=== PATIENT | male | born 1950 | race Caucasian/White ===

== ENCOUNTER 2019-09-02 11:19 | Emergency (ER) | payer MEDICARE, OTHER, SELFPAY ==
[2019-09-02 11:48] VITALS: BP 170/93; PULSE 77; RESP 16; TEMP 36.7; O2SAT 95; BMI 39.9
--- NOTE | 2019-09-02 12:01 | ECG_ITS ---
Measurements Intervals [place] Rate: 82 P: 27 AK: 164 QRS: 39 QRSD: 101 T: 36 QT: 364 QTc: 425 SINUS RHYTHM POSSIBLE RIGHT VENTRICULAR CONDUCTION DELAY [RSR (QR) IN V1/V2] No previous ECG available for comparison Electronically Signed On 09-02-2019 13:03:26 LOGISTICS SUPPLY OFFICER by Blanca Lewis M.D. [id number] f
--- NOTE | 2019-09-02 12:01 | CTR_ITS ---
PROCEDURE INFORMATION: Exam: CT Cervical Spine Without Contrast Exam date and time: 09/02/2019 12:28 PM Age: 69 years old Clinical indication: Patient HX: Left hand and arm numbness; Additional info: Numbness in fingers TECHNIQUE: Imaging protocol: Computed tomography images of the cervical spine without contrast. Total DLP: 985 mGy-cm Radiation optimization: All CT scans at this facility use at least one of these dose optimization techniques: automated exposure control; mA and/or kV adjustment per patient size (includes targeted exams where dose is matched to clinical indication); or iterative reconstruction. COMPARISON: No relevant prior studies available. FINDINGS: Vertebrae: No acute fracture. Normal alignment. Moderate diffuse degenerative changes are noted with disc space narrowing and endplate osteophytes with sclerosis greatest at C4-C5, C5-C6 and C6-C7. Discs/Spinal canal/Neural foramina: No disc herniations. Posterior endplate osteophytes and moderate facet hypertrophy is noted throughout the cervical spine. This results in multiple levels mild foraminal narrowing especially on the right at C5-C6 and C6-C7 and on the left at C4-C5. Soft tissues: Unremarkable. Lungs: Lung apices are normal. CT/CT cervical spin wo con* [id number] IMPRESSION: No acute findings. Degenerative changes are noted as above. Radiation Dose CTDIVOL = (mGy): DLP = 985 (mGy-cm)
--- NOTE | 2019-09-02 12:03 | ED_ITS ---
HPI - Back Pain/Injury General: Chief Complaint: Back Pain/Injury Stated Complaint: BAD BACK, NUMB FINGERS Time Seen by Provider: 09/02/19 11:54 History of Present Illness: HPI Narrative: Patient with a history of abdominal bloating and numbness in his fingers over the last week and a half. Patient has been treated for cellulitis in his left little finger. Still has some swelling at finger from a splinter that was present. Then saw his family provider Dr. Griffin who diagnosed him with kyphosis for the cause of his numbness in his fingers and his abdominal bloating. Patient states he is not improving is supposed to follow-up with Dr. Griffin on Tuesday. Said the numbness in his fingers is worsening Does have 2 cardiac stents. MD elicited complaint: other (History of bulging disc in neck.) Pertinent past history: prior back pain Onset (ago): week(s) Timing: constant and progressively worsening Severity: moderate Similar Symptoms Previously: No Quality: tingling Radiation: other (Both hands) Exacerbating factors: none Associated symptoms: Reports tingling/numbness/burning; Deny abdominal pain, chills, fever(s), nausea or vomiting Treatments prior to arrival: other (Abdominal bloating) Review of Systems Narrative: Pain in upper back Const: Denies: fever, chills or body aches Eyes: Denies: change in vision or blurry vision ENMT: Denies: throat pain or nasal congestion Card: Denies: chest pain or shortness of breath on exertion Resp: Denies: shortness of breath, productive cough or non-productive cough GI: Reports: bloating; Denies: abdominal pain, nausea or vomiting : Denies: difficulty urinating Musc: Denies: extremity pain Skin/Breast: Denies: rash Neuro: Reports: other (Numbness and tingling in fingers); Denies: headache Psych: Denies: anxiety or depression Eladio/Lymph: Denies: easy bruising PFSH ED PFSH: Social History Smoking and tobacco status: former smoker Alcohol intake: current Physical Exam Const: COMMON NORMALS: no apparent distress, average body habitus and oriented x3 HENMT: COMMON NORMALS: normocephalic HEAD & SCALP: normal to inspection and normocephalic FACE & SINUS: normal facial exam Eye: COMMON NORMALS: conjunctivae normal GENERAL EYE: normal appearance of both eyes CONJUNCTIVA: Yes conjunctivae normal Neck/C-Spine: COMMON NORMALS: no JVD Chest: COMMONS NORMALS: inspection of chest normal Resp: COMMON NORMALS: normal respiratory effort and clear to auscultation bilaterally AUSCULTATION: clear to auscultation bilaterally Cardio: COMMON NORMALS: no JVD, regular rate and regular rhythm RATE: regular rate RHYTHM: regular rhythm GI: COMMON NORMALS: normal to inspection, nondistended, normoactive bowel sounds Extremity: COMMON NORMALS: normal to inspection and full ROM Neuro: COMMON NORMALS: oriented x3 Course Vital Signs: Vital signs: Vital Signs Temperature 98.1 F 09/02/19 11:48 Pulse Rate 85 09/02/19 12:08 Respiratory Rate 18 09/02/19 12:08 Blood Pressure 141/86 09/02/19 12:08 Pulse Oximetry 95 09/02/19 12:08 MDM - Back Pain/Injury MDM Narrative: Medical decision making narrative: Discussed case and results with Dr. Garcia patient follow-up with Dr. Griffin on Tuesday and go over results possibly needs MRI for cervical radiculopathy patient tries magnesium citrate to help with his gas and and stool he has in his colon. Lab Data: Labs: Lab Results 09/02/19 09/02/19 09/02/19 Range/Units 12:23 12:23 12:23 WBC 7.5 (4.0-10.0) 10^3/ uL RBC 4.50 (4.1-5.3) 10^6/u L Hgb 13.3 (11.7-16.6) g/dL Hct 41.0 L (42.0-52.0) % MCV 91.1 (80-94) fL MCH 29.6 (28.0-34.0) pg MCHC 32.4 (30.0-36.0) g/dL RDW 13.6 (12.1-15.1) % Plt Count 248 (130-400) 10^3/c mm MPV 11.6 H (7.4-10.4) fL Neut % (Auto) 60.3 % Lymph % (Auto) 20.6 % [place] % (Auto) 12.9 % Eos % (Auto) 4.5 % Baso % (Auto) 1.3 % Neut # (Auto) 4.5 (1.8-7.7) 10^3/u L Lymph # (Auto) 1.6 (0.8-4.8) 10^3/u L [place] # (Auto) 1.0 H (0.2-0.9) 10^3/u L Eos # (Auto) 0.3 (0.0-0.8) 10^3/u L Baso # (Auto) 0.1 (0.0-0.1) 10^3/u L Nucleated RBC % (a uto) 0 % Nucleated RBCs # 0.0 /100WBC Sodium 140 (136-145) mmol/L Potassium 4.2 (3.5-5.1) mmol/L Chloride 104 (98-107) mmol/L Carbon Dioxide 25 (22-29) mmol/L Anion Gap 15.2 (5-19) BUN 20 (8-23) mg/dL Creatinine 1.0 (0.7-1.2) mg/dL GFR Calculation 74.5 L (90-130) mL/min Glucose 110 (65-115) mg/dL Calcium 9.1 (8.5-10.5) mg/dL Total Bilirubin 0.3 (0.15-1.2) mg/dL AST 17 (0-40) U/L ALT 15 (0-41) U/L Alkaline Phosphata se 57 (40-130) IU/L Troponin T Baselin e 13 (0-15) ng/mL Total Protein 6.4 L (6.6-8.7) g/dL Albumin 3.8 (3.5-5.2) g/dL Globulin 2.6 (1.3-4.6) g/dL EKG Data^: EKG 1: EKG interpretation date: 09/02/19 EKG interpretation time: 12:18 Interpretation: SR. *@bpm, pr-164, qrs 101ms Discharge Plan Discharge Prescriptions: No Action aspirin [Adult Low Dose Aspirin] 81 mg tablet,delayed release (DR/EC) 81 mg PO QDAY RF: 0 hydrochlorothiazide 12.5 mg tablet 12.5 mg PO QAM RF: 0 lisinopril 10 mg tablet 10 mg PO BID RF: 0 clonidine HCl 0.1 mg tablet 0.05 mg PO BID PRN (Reason: hypertensive emergency) RF: 0 glucosamine-chondroitin [Osteo Bi-Flex] 250-200 mg tablet 1 tab PO TID RF: 0 metoprolol succinate 50 mg tablet extended release 24 hr 50 mg PO QDAY Qty: 30 RF: 11 Coding Level of Care Code ED [employer] Operator for Suzetteg Fwd Exam Comprehensive
[2019-09-02 12:08] VITALS: BP 141/86; PULSE 85; RESP 18; O2SAT 95
--- NOTE | 2019-09-02 12:10 | PC.NURSE ---
Patient reports that he started working at a [employer] recently after being retired. Patient states about 3 weeks of working that his back was hurting. Patient reports that his left arm started to get numb. Patient reports his left arm and hand has been numb for about 1 week. Patient states that he is having a hard time grabbing stuff. Patient reports that he woke up this morning with right sided arm numbness.
[2019-09-02] MEDS: sodium chloride 0.9% 1,000 ML 125 ML IV (12:19)
--- NOTE | 2019-09-02 12:20 | XR_ITS ---
WS: [id number] XR acute abdomen series [id number] REASON FOR EXAM: bloating and back pain FINDINGS: The upright chest shows normal appearance of the heart lung hugo are clear there is no fr ee air. AP upright abdomen shows no free air in the abdomen. There are scattered small bowel loops irregular low density and there is fecal stasis the left colon. No definite unusual calcifications in the abdomen. There is postop changes across the upper abdomen. There is fecal stasis in the left: The heart is normal. The lungs are clear No free air. XR/XR acute abdomen series [id number] IMPRESSION: Adynamic ileus.
[2019-09-02 12:31] LABS: Basophils # 0.1 10^3/uL (0.0-0.1); Basophils % 1.3 %; Eosinophils # 0.3 10^3/uL (0.0-0.8); Eosinophils % 4.5 %; Hemoglobin 13.3 g/dL (11.7-16.6); Lymphocytes # 1.6 10^3/uL (0.8-4.8); Lymphocytes % 20.6 %; Mean Corpuscular HGB Conc 32.4 g/dL (30.0-36.0); Mean Corpuscular Hemoglobin 29.6 pg (28.0-34.0); Mean Corpuscular Volume 91.1 fL (80-94); Mean Platelet Volume 11.6 fL (7.4-10.4); Monocytes % 12.9 %; Neutrophils # 4.5 10^3/uL (1.8-7.7); Neutrophils % 60.3 %; Nucleated Red Blood Cells % 0 %; Platelet Count 248 10^3/cmm (130-400); Red Cell Distribution Width 13.6 % (12.1-15.1); White Blood Count 7.5 10^3/uL (4.0-10.0)
[2019-09-02 12:53] LABS: Alanine Aminotransferase 15 U/L (0-41); Albumin Level 3.8 g/dL (3.5-5.2); Alkaline Phosphatase 57 IU/L (40-130); Anion Gap 15.2 (5-19); Aspartate Amino Transferase 17 U/L (0-40); Blood Urea Nitrogen 20 mg/dL (8-23); Calcium 9.1 mg/dL (8.5-10.5); Carbon Dioxide 25 mmol/L (22-29); Chloride 104 mmol/L (98-107); Globulin 2.6 g/dL (1.3-4.6); Glomerular Filtration Rate 74.5 mL/min (90-130); Glucose 110 mg/dL (65-115); Potassium 4.2 mmol/L (3.5-5.1); Sodium 140 mmol/L (136-145); Total Bilirubin 0.3 mg/dL (0.15-1.2); Total Protein 6.4 g/dL (6.6-8.7)
[2019-09-02 12:56] LABS: Troponin(5th) Baseline 13 ng/mL (0-15)
[2019-09-02 13:37] VITALS: BP 162/69; PULSE 74; RESP 17; O2SAT 95
== END 2019-09-02 13:38 | disposition home or self-care (01) ==
PROVIDERS: Emergency Provider Nurse Practitioner Family; Family Provider Family Medicine; PCP Family Medicine
DX: M54.6 Pain in thoracic spine (principal); R20.0 Anesthesia of skin; R14.0 Abdominal distension (gaseous); Z87.891 Personal history of nicotine dependence
CPT/HCPCS: 36415; 72125; 74022; 80053; 84484; 85025; 87040; 93005; 96360; 99282; 99283; J7030

== ENCOUNTER 2019-09-24 08:15 | Outpatient (CLI) | payer MEDICARE, OTHER, SELFPAY ==
--- NOTE | 2019-09-27 16:00 | MR_ITS ---
WS: [id number] MRI CERVICAL SPINE NONCONTRAST TECHNIQUE: Sagittal T1, T2 and STIR imaging. Axial T2, gradient, and fiesta imaging. CLINICAL INFORMATION: unsteady COMPARISON: None. FINDINGS: Straightening of the normal cervical lordosis. Mild spondylitic changes. Mild disc bulging at C6-C7 a nd C7-T1. C2-C3: Normal. C3-C4: Mild disc osteophyte complex with endplate ridging. Moderate right and mild left foraminal hilary rowing. Mild facet arthropathy. Mild central canal stenosis. C4-C5: Mild disc osteophyte complex with endplate ridging. Mild central canal stenosis. Moderate left and mild right bony foraminal narrowing. Mild facet arthropathy. C5-C6: Disc osteophyte complex with endplate ridging. Mild to moderate central canal stenosis and sli ght indentation on the right ventral cervical cord. Moderate to severe right and mild to moderate lef t bony foraminal narrowing. Mild facet arthropathy. C6-C7: Central disc protrusion with slight contact of the cervical cord. Mild to moderate central can al stenosis. Severe left and moderate right bony foraminal narrowing. Mild facet arthropathy. C7-T1: Mild disc osteophyte complex with endplate ridging. Mild/moderate bony foraminal narrowing. Sp inal canal is patent Visualized brain stem structures: Normal. Prevertebral soft tissues: Normal.
--- NOTE | 2019-09-27 16:45 | MR_ITS ---
WS: [id number] MRI HEAD WITHOUT CONTRAST TECHNIQUE: Sagittal T1, T2 axial, T2 axial FLAIR, axial and coronal T1 images, axial susceptibility w eighted imaging, axial diffusion weighted images, and coronal T2 images were obtained. CLINICAL INFORMATION: unsteady gait COMPARISON: None. FINDINGS: No evidence of restricted diffusion to suggest acute ischemia. Ventricular system and basal cisterns are patent. No suspicious intracranial signal abnormalities. Moderate parenchymal volume loss. Normal posterior fossa. Normal vascular flow voids at the skull base. No evidence of mass or mass effect. P aranasal sinuses are well aerated. Mild mucosal thickening in the ethmoid air cells. Partial opacification of the mastoid tips. No hemosiderin on the susceptibly weighted images. Tempora l lobes and hippocampal formations are normal in appearance. Mild symmetric atrophy. Normal optic chi asm and pituitary infundibulum.
== END 2019-09-24 08:16 | disposition home or self-care (01) ==
LOC: RADSHAW 09-25 08:50
PROVIDERS: Family Provider Family Medicine; PCP Family Medicine; Referring Provider Family Medicine; Visit Provider Specialist
DX: R20.0 Anesthesia of skin; R20.2 Paresthesia of skin; R29.90 Unspecified symptoms and signs involving the nervous system; R27.0 Ataxia, unspecified; Z87.891 Personal history of nicotine dependence
CPT/HCPCS: 73140; 99204; 99214

== ENCOUNTER 2019-09-27 12:50 | Outpatient (CLI) | payer MEDICARE, OTHER, SELFPAY ==
--- NOTE | 2019-09-27 | MR_ITS ---
NOTE: Report was unsigned for reason: Order was edited. Original Signature date and time was: 09/09/19; 1408 MRI HEAD WITHOUT CONTRAST TECHNIQUE: Sagittal T1, T2 axial, T2 axial FLAIR, axial and coronal T1 images, axial susceptibility weighted imaging, axial diffusion weighted images, and coronal T2 images were obtained. CLINICAL INFORMATION: unsteady gait COMPARISON: None. FINDINGS: No evidence of restricted diffusion to suggest acute ischemia. Ventricular system and basal cisterns are patent. No suspicious intracranial signal abnormalities. Moderate parenchymal volume loss. Normal posterior fossa. Normal vascular flow voids at the skull base. No evidence of mass or mass effect. Paranasal sinuses are well aerated. Mild mucosal thickening in the ethmoid air cells. Partial opacification of the mastoid tips. No hemosiderin on the susceptibly weighted images. Temporal lobes and hippocampal formations are normal in appearance. Mild symmetric atrophy. Normal optic chiasm and pituitary infundibulum. Dictated By: Joce Marquez MD Signed By: Signed Date/Time: DD/ 1404 MTDD
--- NOTE | 2019-09-27 | MR_ITS ---
MRI CERVICAL SPINE NONCONTRAST TECHNIQUE: Sagittal T1, T2 and STIR imaging. Axial T2, gradient, and fiesta imaging. CLINICAL INFORMATION: unsteady COMPARISON: None. FINDINGS: Straightening of the normal cervical lordosis. Mild spondylitic changes. Mild disc bulging at C6-C7 and C7-T1. C2-C3: Normal. C3-C4: Mild disc osteophyte complex with endplate ridging. Moderate right and mild left foraminal narrowing. Mild facet arthropathy. Mild central canal stenosis. C4-C5: Mild disc osteophyte complex with endplate ridging. Mild central canal stenosis. Moderate left and mild right bony foraminal narrowing. Mild facet arthropathy. C5-C6: Disc osteophyte complex with endplate ridging. Mild to moderate central canal stenosis and slight indentation on the right ventral cervical cord. Moderate to severe right and mild to moderate left bony foraminal narrowing. Mild facet arthropathy. C6-C7: Central disc protrusion with slight contact of the cervical cord. Mild to moderate central canal stenosis. Severe left and moderate right bony foraminal narrowing. Mild facet arthropathy. C7-T1: Mild disc osteophyte complex with endplate ridging. Mild/moderate bony foraminal narrowing. Spinal canal is patent Visualized brain stem structures: Normal. Prevertebral soft tissues: Normal. Dictated By: Joce Marquez MD Signed By: Signed Date/Time: DD/ 1429 MTDD
--- NOTE | 2019-09-27 08:13 | MR_ITS ---
WS: [id number] MRI CERVICAL SPINE NONCONTRAST TECHNIQUE: Sagittal T1, T2 and STIR imaging. Axial T2, gradient, and fiesta imaging. CLINICAL INFORMATION: unsteady COMPARISON: None. FINDINGS: Straightening of the normal cervical lordosis. Mild spondylitic changes. Mild disc bulging at C6-C7 a nd C7-T1. C2-C3: Normal. C3-C4: Mild disc osteophyte complex with endplate ridging. Moderate right and mild left foraminal hilary rowing. Mild facet arthropathy. Mild central canal stenosis. C4-C5: Mild disc osteophyte complex with endplate ridging. Mild central canal stenosis. Moderate left and mild right bony foraminal narrowing. Mild facet arthropathy. C5-C6: Disc osteophyte complex with endplate ridging. Mild to moderate central canal stenosis and sli ght indentation on the right ventral cervical cord. Moderate to severe right and mild to moderate lef t bony foraminal narrowing. Mild facet arthropathy. C6-C7: Central disc protrusion with slight contact of the cervical cord. Mild to moderate central can al stenosis. Severe left and moderate right bony foraminal narrowing. Mild facet arthropathy. C7-T1: Mild disc osteophyte complex with endplate ridging. Mild/moderate bony foraminal narrowing. Sp inal canal is patent Visualized brain stem structures: Normal. Prevertebral soft tissues: Normal. MR/MR cervical spin wo con* [id number] IMPRESSION: 1. Straightening of the normal cervical lordosis. Mild spondylitic changes. 2. Mild central canal stenosis C4-C5 C5-C6 and C6-C7. 3. Right pericentral disc osteophyte protrusion C5-C6 and central disc protrus ion C6-C7 with slight indentation on cervical cord and mild to moderate central canal stenosis. 4. Multilevel bony foraminal narrowing worse at left C4-C5, right C5-C6, and l eft C6-C7. 5. Mild to moderate facet arthropathy worse at C4-C5, C5-C6 and C6-C7.
--- NOTE | 2019-09-27 08:13 | MR_ITS ---
WS: [id number] MRI HEAD WITHOUT CONTRAST TECHNIQUE: Sagittal T1, T2 axial, T2 axial FLAIR, axial and coronal T1 images, axial susceptibility w eighted imaging, axial diffusion weighted images, and coronal T2 images were obtained. CLINICAL INFORMATION: unsteady gait COMPARISON: None. FINDINGS: No evidence of restricted diffusion to suggest acute ischemia. Ventricular system and basal cisterns are patent. No suspicious intracranial signal abnormalities. Moderate parenchymal volume loss. Normal posterior fossa. Normal vascular flow voids at the skull base. No evidence of mass or mass effect. P aranasal sinuses are well aerated. Mild mucosal thickening in the ethmoid air cells. Partial opacification of the mastoid tips. No hemosiderin on the susceptibly weighted images. Tempora l lobes and hippocampal formations are normal in appearance. Mild symmetric atrophy. Normal optic chi asm and pituitary infundibulum. MR/MR head wo con* [id number] IMPRESSION: 1. No evidence of restricted diffusion to suggest acute ischemia. 2. Mild small vessel changes. Moderate parenchymal volume loss. 3. No extra-axial fluid collections. No evidence of mass or mass effect. 4. Mild mucosal thickening in the right greater than left mastoid air cells. 5. No hemosiderin on susceptibly weighted images.
== END 2019-09-27 12:51 | disposition home or self-care (01) ==
LOC: RADSHAW 12:51
PROVIDERS: Family Provider Family Medicine; PCP Family Medicine; Visit Provider Specialist
DX: M47.892 Other spondylosis, cervical region (principal); M48.02 Spinal stenosis, cervical region; M50.222 Other cervical disc displacement at C5-C6 level; R26.81 Unsteadiness on feet
CPT/HCPCS: 70551; 72141

== ENCOUNTER → 2019-10-01 08:09 | Outpatient (BNVA) | payer MEDICARE, OTHER, SELFPAY | PROVIDERS: Family Provider Family Medicine; PCP Family Medicine; Visit Provider Specialist | DX: G56.22 Lesion of ulnar nerve, left upper limb (principal); Z87.891 Personal history of nicotine dependence | CPT/HCPCS: 95910 ==

== ENCOUNTER → 2019-10-04 13:50 | Outpatient (BNVA) | payer MEDICARE, OTHER, SELFPAY | PROVIDERS: Family Provider Family Medicine; PCP Family Medicine; Referring Provider Family Medicine; Visit Provider Specialist | DX: R26.81 Unsteadiness on feet (principal); R20.0 Anesthesia of skin; R20.2 Paresthesia of skin; R29.90 Unspecified symptoms and signs involving the nervous system; R26.9 Unspecified abnormalities of gait and mobility | CPT/HCPCS: 82607; 83036; 83921; 84443 ==

== ENCOUNTER → 2020-05-11 12:12 | Outpatient (BNVA) | payer MEDICARE, OTHER, SELFPAY | PROVIDERS: Family Provider Family Medicine; PCP Family Medicine | DX: Z20.828 Contact with and (suspected) exposure to other viral communicable diseases (principal); J11.1 Influenza due to unidentified influenza virus with other respiratory manifestations | CPT/HCPCS: 87400; 87635 ==

== ENCOUNTER 2020-09-26 04:50 | Emergency (ER) | payer MEDICARE, OTHER, SELFPAY ==
[2020-09-26] VITALS (8 sets, daily range): BP systolic 97–158; BP diastolic 50–127; PULSE 78–130; RESP 18–26; TEMP 36.6–37.3; O2SAT 94–99; BMI 42.8
--- NOTE | 2020-09-26 04:59 | XR_ITS ---
WS: [id number] XR chest 1V portable [id number] REASON FOR EXAM: fever FINDINGS: Moderate tortuosity thoracic aorta without aneurysmal dilatation. Normal heart size. Minor calcified granulomatous changes in both hemithoraces. No active pulmonary parenchymal or pleural disease is noted. Mild changes of degenerative spondylosis in the mid and lower thoracic spine. XR/XR chest 1V portable [id number] IMPRESSION: No acute pulmonary abnormality.
--- NOTE | 2020-09-26 05:02 | ECG_ITS ---
[facility] Test Date: 2020-09-26 Pat Name: Roly Adamson Department: Room: Gender: Male [employer]: : [id number] Requested By: Guillermina Garcia Order Number: [id number] Julia MD: Buck Ford M.D. Measurements Intervals [place] Rate: 113 P: 12 PA: 170 QRS: -1 QRSD: 96 T: 15 QT: 322 QTc: 443 Interpretive Statements SINUS TACHYCARDIA MODERATE VOLTAGE CRITERIA FOR LVH, CONSIDER NORMAL VARIANT [MEETS CRITERIA IN ONE OF: R(aVL), S(V1), R(V5), R(V5/V6)+S(V1)] ABNORMAL RHYTHM ECG Compared to ECG 09/02/2019 12:17:47 Sinus rhythm no longer present Electronically Signed On 09-26-2020 23:11:32 CDT by Buck Ford M.D. [id number]
--- NOTE | 2020-09-26 05:03 | W.ED.FEVER ---
Documented by User: Guillermina Garcia MD 09/26/20 05:44 HPI - Fever General: Chief Complaint: Fever Stated Complaint: painful urination, constipation Time Seen by Provider: 09/26/20 04:59 Source: patient Mode of arrival: ambulatory Limitations: no limitations History of Present Illness: HPI Narrative: 70-year-old male states that throughout the night he has had painful urination and increased frequency. He states he also started having chills and checked his temperature at home and was 102. He took a Motrin his temperature here is 99. States he had some slight constipation. He states he has had urinary tract infections in the past similar to this. He denies any pain in his testicles or flank pain. He denies any abdominal pain. Denies any vomiting or diarrhea. Denies any worsening improving factors. He denies any cough. Associated symptoms: Reports chills and dysuria; Deny chest pain or headache(s) Review of Systems Const: Reports: fever(s), chills and body aches Eyes: Denies: blurry vision or eye discomfort ENMT: Denies: throat pain or dental pain Card: Denies: chest pain Resp: Denies: dyspnea GI: Reports: constipation : Reports: dysuria and urinary frequency Musc: Denies: neck pain or back pain Skin/Breast: Denies: rash Neuro: Denies: headache(s) Psych: Denies: depression Eladio/Lymph: Denies: easy bruising All/Imm: Denies: urticaria PFSH ED PFSH: Medical History Cardiovascular disease with arteriosclerosis HTN (hypertension) Presence of drug-eluting stent in left circumflex coronary artery stent X2 in 2016, overlapping stent in December 2017. Surgical History History of hemicolectomy Family History Brother Myocardial infarction CAD (coronary artery disease) Mother Cancer Sister Cancer Grandfather Cancer Denies family history of Diabetes Clotting disorder Dementia Hyperlipidemia Psychiatric illness Chronic kidney disease (CKD) Suicide Anesthesia complication Bleeding disorder Family history of premature coronary artery disease Lung disease Hypertension Stroke Social History Smoking and tobacco status: former smoker Quit status (tobacco): has quit using tobacco Year quit tobacco: 2009 Alcohol intake: current Alcohol intake frequency: 0-2 Drinks per Day History of recent travel: No Physical Exam Const: COMMON NORMALS: no acute distress, patient oriented x3 and healthy appearing HENMT: COMMON NORMALS: normocephalic and atraumatic HEAD & SCALP: normocephalic and atraumatic Eye: COMMON NORMALS: Equal, round and reactive pupils present and EOMs intact bilaterally PUPIL: Yes Equal, round and reactive pupils present Neck/C-Spine: COMMON NORMALS: full ROM and supple Chest: COMMONS NORMALS: normal inspection of the chest and normal palpation of entire chest wall Resp: COMMON NORMALS: normal respiratory effort, No retractions, No use of accessory muscles and clear to auscultation bilaterally AUSCULTATION: clear to auscultation bilaterally Cardio: COMMON NORMALS: regular rhythm and No murmurs present (Cardio) RATE: tachycardic RHYTHM: regular rhythm GI: COMMON NORMALS: Normal to inspection, nondistended, normoactive bowel sounds present, Soft to palpation, non-tender and no masses PALPATION: Yes Soft to palpation Extremity: COMMON NORMALS: normal to inspection and full ROM Neuro: COMMON NORMALS: patient oriented x3, moves all extremities and no focal motor deficits Psych: COMMON NORMALS: mental status grossly normal, Normal thought process present and cooperative THOUGHT PROCESS: Normal thought process present Skin: COMMON NORMALS: no rashes or lesions noted and no wounds GENERAL SKIN EXAM: no rashes or lesions noted Course Vital Signs: Vital signs: Vital Signs Temperature 98.2 F 09/26/20 06:40 Pulse Rate 98 09/26/20 07:03 Respiratory Rate 18 09/26/20 07:03 Blood Pressure 97/50 09/26/20 07:03 Pulse Oximetry 96 09/26/20 07:03 MDM - Fever Lab Data: Labs: Lab Results 09/26/20 09/26/20 09/26/20 Range/Units 05:06 05:27 05:27 WBC 20.4 H (4.0-10.0) 10^3/ uL RBC 4.87 (4.1-5.3) 10^6/u L Hgb 15.1 (11.7-16.6) g/dL Hct 45.3 (42.0-52.0) % MCV 93.0 (80-94) fL MCH 31.0 (28.0-34.0) pg MCHC 33.3 (30.0-36.0) g/dL RDW 13.0 (12.1-15.1) % Plt Count 229 (130-400) 10^3/c mm MPV 11.6 H (7.4-10.4) fL Neut % (Auto) 85.9 % Lymph % (Auto) 3.2 % [place] % (Auto) 8.8 % Eos % (Auto) 0.5 % Baso % (Auto) 0.7 % Neut # (Auto) 17.50 H (1.8-7.7) 10^3/u L Lymph # (Auto) 0.7 L (0.8-4.8) 10^3/u L [place] # (Auto) 1.8 H (0.2-0.9) 10^3/u L Eos # (Auto) 0.1 (0.0-0.8) 10^3/u L Baso # (Auto) 0.1 (0.0-0.1) 10^3/u L Nucleated RBC % (a uto) 0 % Nucleated RBCs # 0.0 /100WBC Sodium 137 (136-145) mmol/L Potassium 4.0 (3.5-5.1) mmol/L Chloride 102 (98-107) mmol/L Carbon Dioxide 23 (22-29) mmol/L Anion Gap 16.0 (5-19) BUN 17 (8-23) mg/dL Creatinine 0.9 (0.7-1.2) mg/dL GFR Calculation 83.9 L (90-130) mL/min Glucose 134 H (65-115) mg/dL Calculated Osmolal ity 288 (285-295) mOsm/k g Lactate (0.5-2.2) mmol/L Calcium 9.2 (8.5-10.5) mg/dL Total Bilirubin 1.0 (0.15-1.2) mg/dL AST 16 (0-40) U/L ALT 14 (0-41) U/L Alkaline Phosphata se 55 (40-130) IU/L Total Protein 7.5 (6.6-8.7) g/dL Albumin 4.2 (3.5-5.2) g/dL Globulin 3.3 (1.3-4.6) g/dL Urine Color Yellow (Yellow) Urine Appearance Cloudy (CLEAR) Urine pH 5 (5-7) Ur Specific Gravit y 1.020 (1.005-1.030) Urine Protein Trace (Negative) Urine Glucose (UA) Norm (Normal) Urine Ketones Negative (Negative) Urine Blood 3+ H (Negative) Urine Nitrate Positive H (Negative) Urine Bilirubin Neg (Negative) Urine Urobilinogen Norm (Negative) mg/dL Ur Leukocyte Amy ase 2+ H (Negative) Urine RBC 10-15 H (0-2) /hpf Urine WBC 25-40 H (0-5) /hpf Ur Squamous Epith Cells None (0-5) /hpf Amorphous Sediment Not Reportable Urine Bacteria 3+ H (NONE) /hpf 09/26/20 Range/Units 05:27 WBC (4.0-10.0) 10^3/ uL RBC (4.1-5.3) 10^6/u L Hgb (11.7-16.6) g/dL Hct (42.0-52.0) % MCV (80-94) fL MCH (28.0-34.0) pg MCHC (30.0-36.0) g/dL RDW (12.1-15.1) % Plt Count (130-400) 10^3/c mm MPV (7.4-10.4) fL Neut % (Auto) % Lymph % (Auto) % [place] % (Auto) % Eos % (Auto) % Baso % (Auto) % Neut # (Auto) (1.8-7.7) 10^3/u L Lymph # (Auto) (0.8-4.8) 10^3/u L [place] # (Auto) (0.2-0.9) 10^3/u L Eos # (Auto) (0.0-0.8) 10^3/u L Baso # (Auto) (0.0-0.1) 10^3/u L Nucleated RBC % (a uto) % Nucleated RBCs # /100WBC Sodium (136-145) mmol/L Potassium (3.5-5.1) mmol/L Chloride (98-107) mmol/L Carbon Dioxide (22-29) mmol/L Anion Gap (5-19) BUN (8-23) mg/dL Creatinine (0.7-1.2) mg/dL GFR Calculation (90-130) mL/min Glucose (65-115) mg/dL Calculated Osmolal ity (285-295) mOsm/k g Lactate 1.7 (0.5-2.2) mmol/L Calcium (8.5-10.5) mg/dL Total Bilirubin (0.15-1.2) mg/dL AST (0-40) U/L ALT (0-41) U/L Alkaline Phosphata se (40-130) IU/L Total Protein (6.6-8.7) g/dL Albumin (3.5-5.2) g/dL Globulin (1.3-4.6) g/dL Urine Color (Yellow) Urine Appearance (CLEAR) Urine pH (5-7) Ur Specific Gravit y (1.005-1.030) Urine Protein (Negative) Urine Glucose (UA) (Normal) Urine Ketones (Negative) Urine Blood (Negative) Urine Nitrate (Negative) Urine Bilirubin (Negative) Urine Urobilinogen (Negative) mg/dL Ur Leukocyte Amy ase (Negative) Urine RBC (0-2) /hpf Urine WBC (0-5) /hpf Ur Squamous Epith Cells (0-5) /hpf Amorphous Sediment Urine Bacteria (NONE) /hpf EKG Data^: EKG 1: Attestation: I personally reviewed and interpreted this EKG as follows: EKG interpretation date: 09/26/20 EKG interpretation time: 05:18 Interpretation: sinus tach hr [address] or t wave abnormalities qrs 96 qtc 389 Discharge Plan Discharge Prescriptions: No Action aspirin [Adult Low Dose Aspirin] 81 mg tablet,delayed release (DR/EC) 81 mg PO QDAY RF: 0 acetaminophen [Tylenol] 325 mg capsule 325 mg PO QID PRNRF: 0 Easy Fiber 3 gram/3.5 gram powder 3 gm PO ONCE PRNRF: 0 cholecalciferol (vitamin D3) 10 mcg (400 unit) capsule 400 unit PO DAILY RF: 0 zinc 50 mg tablet 50 mg PO DAILY RF: 0 ibuprofen 200 mg capsule 800 mg PO Q6H PRNRF: 0 lisinopril 10 mg tablet 10 mg PO BID Qty: 60 RF: 11 hydrochlorothiazide 12.5 mg tablet 12.5 mg PO QAM Qty: 30 RF: 11 metoprolol succinate 50 mg tablet extended release 24 hr See Rx Instructions .ROUTE .COMPLEX Qty: 90 RF: 3 lovastatin 20 mg tablet 20 mg PO DAILY Qty: 90 RF: 3 Coding Level of Care Code ED Network Strategist for Chg Fwd Exam Comprehensive Documented by User: Allie Lee MD 09/26/20 08:44 HPI - Fever General: Chief Complaint: Fever Stated Complaint: painful urination, constipation Time Seen by Provider: 09/26/20 04:59 PFSH ED PFSH: Medical History Cardiovascular disease with arteriosclerosis HTN (hypertension) Presence of drug-eluting stent in left circumflex coronary artery stent X2 in 2016, overlapping stent in December 2017. Surgical History History of hemicolectomy Family History Brother Myocardial infarction CAD (coronary artery disease) Mother Cancer Sister Cancer Grandfather Cancer Denies family history of Diabetes Clotting disorder Dementia Hyperlipidemia Psychiatric illness Chronic kidney disease (CKD) Suicide Anesthesia complication Bleeding disorder Family history of premature coronary artery disease Lung disease Hypertension Stroke Social History Smoking and tobacco status: former smoker Quit status (tobacco): has quit using tobacco Year quit tobacco: 2009 Alcohol intake: current Alcohol intake frequency: 0-2 Drinks per Day History of recent travel: No Course Vital Signs: Vital signs: Vital Signs Temperature 98.2 F 09/26/20 06:40 Pulse Rate 98 09/26/20 07:03 Respiratory Rate 18 09/26/20 07:03 Blood Pressure 97/50 09/26/20 07:03 Pulse Oximetry 96 09/26/20 07:03 MDM - Fever MDM Narrative: Medical decision making narrative: I received signout from Dr. Garcia at 06 100. This is a 70-year-old male who developed urinary frequency, hesitancy, dysuria, fever, and rectal discomfort since yesterday. He has had UTIs in the past, but his rectal discomfort this time is new. No hematochezia, denies history of prostate problems. Urinalysis is consistent with acute urinary tract infection. WBC count 20, without bandemia, lactic acid normal, renal function normal. Tachycardia responsive to fluid bolus. BPs stable- He has received [address] chest abdomen and pelvis was ordered due to abnormal appearing chest x-ray and to rule out any other acute process in the abdomen. There right sided pulmonary nodules, largest being 6.3mm. I discussed this with the patient, he said he is already aware of these nodules, as is his PCP There is prostate enlargement, bladder wall thickening, sigmoid rectum and colon normal. Left adrenal mass noted incidentally, 3.7 cm; I discussed this with the patient, that it will need further work-up, and that I will included on his discharge paperwork to show his PCP on follow-up. Lab Data: Labs: Lab Results 09/26/20 09/26/20 09/26/20 Range/Units 05:06 05:27 05:27 WBC 20.4 H (4.0-10.0) 10^3/ uL RBC 4.87 (4.1-5.3) 10^6/u L Hgb 15.1 (11.7-16.6) g/dL Hct 45.3 (42.0-52.0) % MCV 93.0 (80-94) fL MCH 31.0 (28.0-34.0) pg MCHC 33.3 (30.0-36.0) g/dL RDW 13.0 (12.1-15.1) % Plt Count 229 (130-400) 10^3/c mm MPV 11.6 H (7.4-10.4) fL Neut % (Auto) 85.9 % Lymph % (Auto) 3.2 % [place] % (Auto) 8.8 % Eos % (Auto) 0.5 % Baso % (Auto) 0.7 % Neut # (Auto) 17.50 H (1.8-7.7) 10^3/u L Lymph # (Auto) 0.7 L (0.8-4.8) 10^3/u L [place] # (Auto) 1.8 H (0.2-0.9) 10^3/u L Eos # (Auto) 0.1 (0.0-0.8) 10^3/u L Baso # (Auto) 0.1 (0.0-0.1) 10^3/u L Nucleated RBC % (a uto) 0 % Nucleated RBCs # 0.0 /100WBC Sodium 137 (136-145) mmol/L Potassium 4.0 (3.5-5.1) mmol/L Chloride 102 (98-107) mmol/L Carbon Dioxide 23 (22-29) mmol/L Anion Gap 16.0 (5-19) BUN 17 (8-23) mg/dL Creatinine 0.9 (0.7-1.2) mg/dL GFR Calculation 83.9 L (90-130) mL/min Glucose 134 H (65-115) mg/dL Calculated Osmolal ity 288 (285-295) mOsm/k g Lactate (0.5-2.2) mmol/L Calcium 9.2 (8.5-10.5) mg/dL Total Bilirubin 1.0 (0.15-1.2) mg/dL AST 16 (0-40) U/L ALT 14 (0-41) U/L Alkaline Phosphata se 55 (40-130) IU/L Total Protein 7.5 (6.6-8.7) g/dL Albumin 4.2 (3.5-5.2) g/dL Globulin 3.3 (1.3-4.6) g/dL Urine Color Yellow (Yellow) Urine Appearance Cloudy (CLEAR) Urine pH 5 (5-7) Ur Specific Gravit y 1.020 (1.005-1.030) Urine Protein Trace (Negative) Urine Glucose (UA) Norm (Normal) Urine Ketones Negative (Negative) Urine Blood 3+ H (Negative) Urine Nitrate Positive H (Negative) Urine Bilirubin Neg (Negative) Urine Urobilinogen Norm (Negative) mg/dL Ur Leukocyte Amy ase 2+ H (Negative) Urine RBC 10-15 H (0-2) /hpf Urine WBC 25-40 H (0-5) /hpf Ur Squamous Epith Cells None (0-5) /hpf Amorphous Sediment Not Reportable Urine Bacteria 3+ H (NONE) /hpf 09/26/20 Range/Units 05:27 WBC (4.0-10.0) 10^3/ uL RBC (4.1-5.3) 10^6/u L Hgb (11.7-16.6) g/dL Hct (42.0-52.0) % MCV (80-94) fL MCH (28.0-34.0) pg MCHC (30.0-36.0) g/dL RDW (12.1-15.1) % Plt Count (130-400) 10^3/c mm MPV (7.4-10.4) fL Neut % (Auto) % Lymph % (Auto) % [place] % (Auto) % Eos % (Auto) % Baso % (Auto) % Neut # (Auto) (1.8-7.7) 10^3/u L Lymph # (Auto) (0.8-4.8) 10^3/u L [place] # (Auto) (0.2-0.9) 10^3/u L Eos # (Auto) (0.0-0.8) 10^3/u L Baso # (Auto) (0.0-0.1) 10^3/u L Nucleated RBC % (a uto) % Nucleated RBCs # /100WBC Sodium (136-145) mmol/L Potassium (3.5-5.1) mmol/L Chloride (98-107) mmol/L Carbon Dioxide (22-29) mmol/L Anion Gap (5-19) BUN (8-23) mg/dL Creatinine (0.7-1.2) mg/dL GFR Calculation (90-130) mL/min Glucose (65-115) mg/dL Calculated Osmolal ity (285-295) mOsm/k g Lactate 1.7 (0.5-2.2) mmol/L Calcium (8.5-10.5) mg/dL Total Bilirubin (0.15-1.2) mg/dL AST (0-40) U/L ALT (0-41) U/L Alkaline Phosphata se (40-130) IU/L Total Protein (6.6-8.7) g/dL Albumin (3.5-5.2) g/dL Globulin (1.3-4.6) g/dL Urine Color (Yellow) Urine Appearance (CLEAR) Urine pH (5-7) Ur Specific Gravit y (1.005-1.030) Urine Protein (Negative) Urine Glucose (UA) (Normal) Urine Ketones (Negative) Urine Blood (Negative) Urine Nitrate (Negative) Urine Bilirubin (Negative) Urine Urobilinogen (Negative) mg/dL Ur Leukocyte Amy ase (Negative) Urine RBC (0-2) /hpf Urine WBC (0-5) /hpf Ur Squamous Epith Cells (0-5) /hpf Amorphous Sediment Urine Bacteria (NONE) /hpf Discharge Plan Discharge Prescriptions: No Action aspirin [Adult Low Dose Aspirin] 81 mg tablet,delayed release (DR/EC) 81 mg PO QDAY RF: 0 acetaminophen [Tylenol] 325 mg capsule 325 mg PO QID PRNRF: 0 Easy Fiber 3 gram/3.5 gram powder 3 gm PO ONCE PRNRF: 0 cholecalciferol (vitamin D3) 10 mcg (400 unit) capsule 400 unit PO DAILY RF: 0 zinc 50 mg tablet 50 mg PO DAILY RF: 0 ibuprofen 200 mg capsule 800 mg PO Q6H PRNRF: 0 lisinopril 10 mg tablet 10 mg PO BID Qty: 60 RF: 11 hydrochlorothiazide 12.5 mg tablet 12.5 mg PO QAM Qty: 30 RF: 11 metoprolol succinate 50 mg tablet extended release 24 hr See Rx Instructions .ROUTE .COMPLEX Qty: 90 RF: 3 lovastatin 20 mg tablet 20 mg PO DAILY Qty: 90 RF: 3 Coding Level of Care Code ED Network Strategist for Chg Fwd Exam Comprehensive
--- NOTE | 2020-09-26 05:21 | CTR_ITS ---
PROCEDURE INFORMATION: Exam: CT Angiography Chest With Contrast Exam date and time: 09/26/2020 5:29 AM Age: 70 years old Clinical indication: Fever and shortness of breath; Other: None; Prior surgery; Surgery type: Wolf colectomy; Patient HX: Fever with SOB. C/O pelvic pain with dysuria. TECHNIQUE: Imaging protocol: Computed tomographic angiography of the chest with contrast. 3D rendering (Not supervised by radiologist): MIP and/or 3D reconstructed images were created by the technologist. Radiation optimization: All CT scans at this facility use at least one of these dose optimization techniques: automated exposure control; mA and/or kV adjustment per patient size (includes targeted exams where dose is matched to clinical indication); or iterative reconstruction. Contrast material: OMNI 350; Contrast volume: 156 ml; Contrast route: INTRAVENOUS (IV); COMPARISON: CR XR chest 1V portable [id number] 09/26/2020 5:02 AM RADIATION DOSE METRICS: Total DLP (mGy-cm): 3423.21 FINDINGS: Pulmonary arteries: Normal. No pulmonary emboli. Aorta: Unremarkable. No aortic aneurysm. No aortic dissection. Lungs: There is a 6.3 mm pulmonary nodularity seen in the right middle lobe 5.2 mm nodularity seen in the right upper lobe. Pleural spaces: Unremarkable. No pneumothorax. No pleural effusion. Heart: Calcifications are seen within the coronary arteries. Lymph nodes: There are multiple small mediastinal lymph nodes seen that are below CT criteria for lymphadenopathy. Bones/joints: Unremarkable. No acute fracture. Soft tissues: Unremarkable. Other findings: Abdominal findings are reported separately. IMPRESSION: 1. There are no acute chest findings. 2. There are 2 small pulmonary nodularity seen in the right hemithorax, the largest seen in the right middle lobe measuring 6.3 mm. For patients at low risk (minimal or absent history of smoking and of other known risk factors), recommend CT Chest at 3-6 months, then consider CT Chest at 18-24 months. For patients at high risk (history of smoking or of other known risk factors), recommend CT Chest at 3-6 months, then CT Chest at 18-24 months. (Reference: Sydnie) REFERENCES: Sydnie Carreon et al. Guidelines for Management of Incidental Pulmonary Nodules Detected on CT Images: From the Fleischner Society 2017. Radiology. 2017;284(1):228-243. PROCEDURE INFORMATION: Exam: CT Abdomen And Pelvis With Contrast Exam date and time: 09/26/2020 5:29 AM Age: 70 years old Clinical indication: Fever and shortness of breath; Other: None; Prior surgery; Surgery type: Wolf colectomy; Patient HX: Fever with SOB. C/O pelvic pain with dysuria. TECHNIQUE: Imaging protocol: Computed tomography of the abdomen and pelvis with contrast. Radiation optimization: All CT scans at this facility use at least one of these dose optimization techniques: automated exposure control; mA and/or kV adjustment per patient size (includes targeted exams where dose is matched to clinical indication); or iterative reconstruction. Contrast material: OMNI 350; Contrast volume: 156 ml; Contrast route: INTRAVENOUS (IV); COMPARISON: CR XR chest 1V portable [id number] 09/26/2020 5:02 AM RADIATION DOSE METRICS: Total DLP (mGy-cm): 3423.21 FINDINGS: Liver: Normal. No mass. Gallbladder and bile ducts: Normal. No calcified stones. No ductal dilation. Pancreas: Normal. No ductal dilation. Spleen: Normal. No splenomegaly. Adrenal glands: There is a heterogeneous left adrenal mass present measuring 2.6 x 2.4 x 3.7 cm. Kidneys and ureters: Some subtle strandy opacities are seen in the perinephric fascia bilaterally likely represents some chronic scarring. Stomach and bowel: Unremarkable. No obstruction. No mucosal thickening. Appendix: No evidence of appendicitis. Intraperitoneal space: Unremarkable. No free air. No significant fluid collection. Vasculature: Unremarkable. No abdominal aortic aneurysm. Lymph nodes: Unremarkable. No enlarged lymph nodes. Urinary bladder: There is mild bladder wall thickening although the bladder is incompletely distended. There is some subtle haziness seen along the serosal margin of the bladder. Mild cystitis cannot be excluded. Reproductive: Prostate gland is mildly prominent measuring approximately 4.9 x 5.94.6 cm. Bones/joints: Unremarkable. No acute fracture. Soft tissues: Small bilateral inguinal hernias containing fat. CT/CT angio chest w abd pel w con IMPRESSION: 1. There is no evidence for ureteral obstruction. The urinary bladder exhibits mild wall thickening and some haziness seen along the serosal margin, findings that could represent cystitis although the bladder is incompletely distended. 2. Prominent prostate gland 3. Small bilateral inguinal hernias containing 4. Left adrenal mass measuring up to 3.[address] (Cindi Back, ACR White Paper, 2017) Radiation Dose CTDIVOL = (mGy): DLP = 3423.21~3423.21 (mGy-cm)
[2020-09-26 05:29] LABS: Bilirubin Urine Neg (Negative); Blood Urine 3+ (Negative); Glucose Urine UA Norm (Normal); Ketones Urine Negative (Negative); Nitrate Urine Positive (Negative); Protein Urine Trace (Negative); Urine Appearance Cloudy (CLEAR); Urine Color Yellow (Yellow); pH Urine 5 (5-7)
[2020-09-26 05:30] LABS: Add Urine Microscopic? YES; Bacteria Urine 3+ /hpf; Leukocyte Esterase Urine 2+ (Negative); Urobilinogen Urine Norm (Negative); WBC Urine 25-40 /hpf (0-5)
[2020-09-26] MEDS: acetaminophen 325 mg Tablet 650 MG PO (05:30)
[2020-09-26 05:31] LABS: Add Urine Culture? Yes
[2020-09-26] MEDS: sodium chloride 0.9% 1,000 ML 999 ML IV ×2 (05:31→06:54)
[2020-09-26 05:42] LABS: Basophils # 0.1 10^3/uL (0.0-0.1); Basophils % 0.7 %; Eosinophils # 0.1 10^3/uL (0.0-0.8); Eosinophils % 0.5 %; Hematocrit 45.3 % (42.0-52.0); Hemoglobin 15.1 g/dL (11.7-16.6); Lymphocytes # 0.7 10^3/uL (0.8-4.8); Lymphocytes % 3.2 %; Mean Corpuscular HGB Conc 33.3 g/dL (30.0-36.0); Mean Platelet Volume 11.6 fL (7.4-10.4); Monocytes # 1.8 10^3/uL (0.2-0.9); Monocytes % 8.8 %; Neutrophils % 85.9 %; Nucleated Red Blood Cells % 0 %; Platelet Count 229 10^3/cmm (130-400); Red Blood Count 4.87 10^6/uL (4.1-5.3); White Blood Count 20.4 10^3/uL (4.0-10.0)
[2020-09-26] MEDS: cefTRIAXone 1,000 MG in sodium chloride 0.9% (plus) 50 ML 100 MG IV (05:48)
[2020-09-26 06:01] LABS: Alanine Aminotransferase 14 U/L (0-41); Albumin Level 4.2 g/dL (3.5-5.2); Alkaline Phosphatase 55 IU/L (40-130); Aspartate Amino Transferase 16 U/L (0-40); Blood Urea Nitrogen 17 mg/dL (8-23); Calcium 9.2 mg/dL (8.5-10.5); Carbon Dioxide 23 mmol/L (22-29); Chloride 102 mmol/L (98-107); Globulin 3.3 g/dL (1.3-4.6); Glomerular Filtration Rate 83.9 mL/min (90-130); Glucose 134 mg/dL (65-115); Osmolality Calculated 288 mOsm/kg (285-295); Sodium 137 mmol/L (136-145); Total Protein 7.5 g/dL (6.6-8.7)
[2020-09-26 06:02] LABS: Lactate (Lactic Acid level) 1.7 mmol/L (0.5-2.2)
[2020-09-26] MEDS: iohexol 350 mg/mL 100 mL Btl IV ×2 (06:23→06:35)
--- NOTE | 2020-09-26 06:26 | PC.NURSE ---
patient to ct
--- NOTE | 2020-09-26 07:04 | PC.NURSE ---
patient stated felt better, denied any pain at this time. no acute distress noted.
[2020-09-26] MEDS: levoFLOXacin 500 mg Tablet PO (08:21)
--- NOTE | 2020-09-26 08:27 | PC.NURSE ---
hold LR per MD verbal order
== END 2020-09-26 09:25 | disposition home or self-care (01) ==
PROVIDERS: Emergency Medicine; Emergency Provider Family Medicine; PCP Family Medicine
DX: R30.9 Painful micturition, unspecified (principal); I10 Essential (primary) hypertension; Z87.891 Personal history of nicotine dependence; R35.0 Frequency of micturition
CPT/HCPCS: 71045; 71275; 74177; 80053; 81001; 83605; 84153; 85025; 87040; 87077; 87086; 87186; 93005; 96361; 96365; 99284; J0696; J7030; Q9967

== ENCOUNTER → 2021-11-12 14:17 | Outpatient (BNVA) | payer MEDICARE, OTHER, SELFPAY | PROVIDERS: PCP Family Medicine; Visit Provider Family Medicine | DX: M25.562 Pain in left knee (principal); R97.20 Elevated prostate specific antigen [PSA] | CPT/HCPCS: 73562; 84153 ==

== ENCOUNTER → 2021-12-31 10:59 | Outpatient (BNVA) | payer MEDICARE, OTHER, SELFPAY | PROVIDERS: PCP Family Medicine; Visit Provider Urology | DX: R97.20 Elevated prostate specific antigen [PSA] (principal) | CPT/HCPCS: 84153 ==

== ENCOUNTER → 2022-01-08 07:18 | Outpatient (BNVA) | payer MEDICARE, OTHER, SELFPAY | PROVIDERS: PCP Family Medicine; Visit Provider Urology | DX: R97.20 Elevated prostate specific antigen [PSA] (principal); E27.8 Other specified disorders of adrenal gland | CPT/HCPCS: 81003; 99203; 99204 ==

== ENCOUNTER → 2022-02-22 15:29 | Outpatient (BNVA) | payer MEDICARE, OTHER, SELFPAY | PROVIDERS: PCP Family Medicine; Visit Provider Urology | DX: R97.20 Elevated prostate specific antigen [PSA] (principal); N39.9 Disorder of urinary system, unspecified; E27.8 Other specified disorders of adrenal gland | CPT/HCPCS: 81003; 99024 ==

== ENCOUNTER → 2023-01-17 13:03 | Outpatient (BNVA) | payer MEDICARE, SELFPAY | PROVIDERS: PCP Family Medicine; Referring Provider Family Medicine; Visit Provider Specialist | DX: M17.0 Bilateral primary osteoarthritis of knee (principal); E66.01 Morbid (severe) obesity due to excess calories; Z68.41 Body mass index [BMI] 40.0-44.9, adult | CPT/HCPCS: 20610; 73560; 73565; 99204; J1100; J2795; J3301 ==

== ENCOUNTER → 2023-01-31 11:40 | Outpatient (BNVA) | payer MEDICARE, SELFPAY | PROVIDERS: PCP Family Medicine; Visit Provider Specialist | DX: M75.82 Other shoulder lesions, left shoulder (principal); M19.012 Primary osteoarthritis, left shoulder; E66.01 Morbid (severe) obesity due to excess calories; Z68.41 Body mass index [BMI] 40.0-44.9, adult | CPT/HCPCS: 73030; 99214 ==

== ENCOUNTER 2023-02-08 06:00 | Outpatient (RCR) | payer MEDICARE, SELFPAY | END 2023-03-10 23:59 | disposition home or self-care (01) | LOC: MPT 06:00 | PROVIDERS: Visit Provider Specialist | DX: M25.512 Pain in left shoulder (principal) | CPT/HCPCS: 97110; 97140; 97161 ==

== ENCOUNTER → 2023-03-07 08:54 | Outpatient (BNVA) | payer MEDICARE, SELFPAY | PROVIDERS: Visit Provider Specialist | DX: M17.12 Unilateral primary osteoarthritis, left knee (principal) | CPT/HCPCS: 99213 ==

== ENCOUNTER → 2023-04-25 16:58 | Outpatient (BNVA) | payer MEDICARE, SELFPAY | PROVIDERS: PCP Family Medicine; Visit Provider Family Medicine | DX: I25.10 Atherosclerotic heart disease of native coronary artery without angina pectoris; I10 Essential (primary) hypertension | CPT/HCPCS: 80053; 80061; 84439; 84443; 85025 ==

== ENCOUNTER → 2023-05-09 14:36 | Outpatient (BNVA) | payer MEDICARE, SELFPAY | PROVIDERS: PCP Family Medicine; Visit Provider Specialist | DX: Z01.818 Encounter for other preprocedural examination (principal); M17.12 Unilateral primary osteoarthritis, left knee | CPT/HCPCS: 81003; 99214 ==

== ENCOUNTER 2023-05-12 13:04 | Outpatient (CLI) | payer MEDICARE, SELFPAY ==
--- NOTE | 2023-05-12 13:30 | CT_ITS ---
WS: [id number] CT LEFT KNEE, NONCONTRAST ROXANA TECHNIQUE: Noncontrast CT of the LEFT knee to include the LEFT hip and ankle. CLINICAL INFORMATION: M17.12 - Unilateral primary osteoarthritis, left knee COMPARISON: None. DLP: 978.[address] scans at [facility] use at least one of these dose optimization techniques: automated e xposure control; mA and/or kV adjustment per patient size (includes targeted exams where dose is matc hed to clinical indication); or iterative reconstruction. FINDINGS: Advanced tricompartmental arthritis LEFT knee worse in the medial joint compartment. [id number] art iculation in the medial joint compartment. Hypertrophic change along the joint line. Hypertrophic pat jamey. Small suprapatellar effusion. Mild degenerative arthritis both hips. Normal pubic rami. Enlarge d prostate measuring 4.6 cm. Recommend correlation PSA. Fat-containing LEFT inguinal hernia. Small lo bulated popliteal cyst. IMPRESSION: Enlarged prostate measuring 4.6 cm. Recommend correlation PSA. Images obtained for preoperative purposes.
== END 2023-05-12 13:05 | disposition home or self-care (01) ==
LOC: RAD 13:04
PROVIDERS: PCP Family Medicine; Visit Provider Specialist
DX: M17.12 Unilateral primary osteoarthritis, left knee (principal)
CPT/HCPCS: 73700

== ENCOUNTER 2023-05-26 08:28 | Observation (INO) | payer MEDICARE, SELFPAY ==
[2023-05-26] VITALS (18 sets, daily range): BP systolic 93–142; BP diastolic 53–82; PULSE 53–95; RESP 14–18; TEMP 36.3–37.2; O2SAT 92–98; BMI 34.1
[2023-05-26] MEDS: acetaminophen 1,000 MG/100 ML PIGGYBACK 400 MG IV ×3 (06:38→20:24)
[2023-05-26] MEDS: gabapentin 300 mg Capsule PO (06:39)
[2023-05-26] MEDS: sodium chloride 0.9% 1,000 ML 30 ML IV (06:39)
[2023-05-26] MEDS: CELEcoxib 200 mg Capsule 400 MG PO (06:39)
--- NOTE | 2023-05-26 06:40 | P.ANESASSM_ITS ---
Pre-Anesthetic Assessment Height/Weight: Height 1.75 m Temp Pulse Resp BP Pulse Ox O2 Del Method 97.3 F L 53 L 18 142/82 97 Room Air 05/26/23 06:18 05/26/23 06:18 05/26/23 06:18 05/26/23 06:18 05/26/23 06:18 05/26/23 06:20 Operation Date: 05/26/23 07:00 Proposed Procedures p LEFT TOTAL KNEE ARTHROPLASTY WITH ROXANA GUIDANCE. 83258,M17.10(Left) - Buffy Patiño MD Familial anesthetic complications: None Was Beta Karime taken within 24 hours: Yes Was Clonidine taken within 24 hours: N/A Last intake: Intake Last Liquid Date 05/25/23 Last Liquid Time 20:00 Last Solid Date 05/25/23 Last Solid Time 12:00 Social No alcohol and No tobacco Exam alert, oriented x 3, clear to auscultation bilaterally and regular rate & rhythm Airway Mallampati: Class III Dentition: full Pulmonary Sleep Apnea CV/HEM Coronary Artery Disease (2 CONNER in 2017, no further cardiac symptoms) and Hypertension Metabolic Hyperlipidemia Anesthetic Plan ASA status: 3 Anesthesia: Regional (specify below) (spinal + Adductor) Risk of > 500 ml blood loss (7ml/kg in children): Yes, adequate IV access and fluids planned Medications/Allergies Home Medications Medication Instructions Recorded Confirmed Last Taken Type aspirin 81 mg tablet,delayed 81 mg PO QDAY 08/06/19 05/25/23 05/18/23 History release (Adult Low Dose Aspirin) nitroglycerin 0.4 mg sublingual 0.4 mg sublingual Q5M PRN chest 06/12/21 05/25/23 Unknown Rx tablet pain #30 tabs cpap supplies #1 ea 11/26/22 05/09/23 Unknown Rx hyalorinic acid 1 tab PO 1XD 05/09/23 05/25/23 05/25/23 History ascorbic acid (vitamin C) 1,000 mg 500 mg PO DAILY 05/25/23 05/25/23 05/25/23 History tablet (Vitamin C) hydrochlorothiazide 12.5 mg tablet 12.5 mg PO DAILY 05/25/23 05/25/23 05/25/23 History lovastatin 20 mg tablet 20 mg PO DAILY 05/25/23 05/25/23 05/25/23 History meloxicam 15 mg tablet 15 mg PO DAILY 05/25/23 05/25/23 05/18/23 History metoprolol succinate 50 mg 50 mg PO DAILY 05/25/23 05/25/23 05/26/23 History tablet,extended release 24 hr Allergies Allergy/AdvReac Type Severity Reaction Status Date / Time No Known Allergies Allergy Verified 05/25/23 09:22 [facility] Anesthesia Medical History Adrenal mass Cardiovascular disease with arteriosclerosis HTN (hypertension) Presence of drug-eluting stent in left circumflex coronary artery stent X2 in 2016, overlapping stent in December 2017. Surgical History History of hemicolectomy Family History Brother Myocardial infarction CAD (coronary artery disease) Mother , AT 81 Cancer LUNG, BREAST Sister Cancer Grandfather Cancer Father , AT AGE 57 Kyphosis deformity of spine Denies family history of Diabetes Clotting disorder Dementia Hyperlipidemia Psychiatric illness Chronic kidney disease (CKD) Suicide Anesthesia complication Bleeding disorder Family history of premature coronary artery disease Lung disease Hypertension Stroke Social History Smoking and tobacco/nicotine status: former use of tobacco/nicotine Alcohol intake: current Alcohol intake frequency: few times a week Substance/Drug Use: never Marital status: Current occupational status: employed Current occupation: [employer] Anesthesia Cardiac Studies: No Data to Display
--- NOTE | 2023-05-26 06:56 | W.PM.OPSUD ---
Surgery/Procedure H&P Update DATE OF PROCEDURE: May 26, 2023 DATE H&P PERFORMED: 05/19/23 H&P UPDATE INFORMATION: I have reviewed H&P completed within last 30 days, I have examined patient prior to procedure, No changes to prior documentation and [place] [facility] [place] indicated PLANNED PROCEDURE: Operation Date: 05/26/23 07:00 Proposed Procedures p LEFT TOTAL KNEE ARTHROPLASTY WITH ROXANA GUIDANCE. 27873,M17.10(Left) - Buffy Patiño MD Related Problem List Diagnoses (1) Primary osteoarthritis of left knee:
--- NOTE | 2023-05-26 07:02 | ANES.PROC ---
Anesthesia Procedures Procedure/Date: 05/26/23 Nerve Block ^: Nerve Block 1: Main Anesthesia: spinal anesthesia block Time Out Performed: Yes Consent: requested by attending/covering physician, from patient, from other, risks and benefits reviewed and patient agrees to proceed Nerve block location: adductor canal (L) Anesthesia monitors applied: pulse oximetry, EKG, BP cuff and oxygen Nerve block position: supine Anesthetic Used: ropivicaine 0.5% (30 ml) and with decadron (4 mg) Ultrasound used to: recognize landmarks and visualize and ID femerol nerve Nerve Stimulator Used?: No Interscalene/Femoral BLK: 4 stimuplex 21 g needle used for position and inplane approach, visualize local anesthetic spread and no vascular puncture identified Injection: neg aspiration of heme Patient Tolerated Procedure: well Complications: none
[2023-05-26] MEDS: ceFAZolin 2,000 MG in sodium chloride 0.9% (plus) 50 ML 100 MG IV ×3 (07:15→20:50)
[2023-05-26] MEDS: vancomycin 1,000 MG SDV 1000 MG XX (08:49)
[2023-05-26] MEDS: BUPivacaine 0.5% INJ 30 mL 20 ML INJECTION (08:50)
[2023-05-26] MEDS: BUPivacaine liposome 13.3 mg/mL SDV 10 mL 266 MG INFILTRATI (08:50)
[2023-05-26] MEDS: ceFAZolin 1,000 mg SDV 2000 MG IRRIGATION (08:51)
--- NOTE | 2023-05-26 11:00 | XR_ITS ---
WS: [id number] Exam: XR knee LT 3V* [id number] Date/Time of Exam: 05/26/2023 11:04 AM Reason For Exam: Status post left total knee arthroplasty Comparison 01/17/2023. A total knee arthroplasty is in place in satisfactory position. Postoperative changes in the adjacent soft tissues. Anterior surgical skin clips. IMPRESSION: 1. LEFT total knee replacement in excellent position.
--- NOTE | 2023-05-26 11:01 | PM.OP ---
Operative Report Date of procedure: May 26, 2023 Pre-op diagnosis: Severe degenerative arthritis left knee with varus deformity and flexion contracture Post-op diagnosis: Severe degenerative arthritis left knee with varus deformity and flexion contracture Post-op findings: Severe degenerative osteoarthritis of the left knee with complete obliteration of joint space and with varus deformity and flexion contracture Procedure done: Left total knee arthroplasty with Ajay guidance Implants: The Jania total knee system with a size 6 triathlon beaded cruciate retaining femur left, a triathlon titanium tibial component size 7 beaded, a triathlon X3 tibial bearing CS insert size 7 X 10 mm and a beaded triathlon titanium asymmetric patella size 38 x 11 mm Specimens removed/disposition: Bone, disposed of Surgeon: Buffy Patiño MD Yarn Texture Machine Operator: Heather Ashford NP, services were required for positioning, exposure, prosthetic placement, and completion of surgical procedure Anesthesia: Spinal (With MAC and perioperative adductor block, ASA 3) Estimated blood loss (mL): 100 Tourniquet time (min): 0 (Not utilized) IV fluids (mL): 900 Urine output (mL): 400 Complications: None Findings: Severe degenerative osteoarthritis of the left knee with varus deformity and flexion contracture. Condition: stable Disposition: PACU (Then return to floor for postoperative rehabilitation and pain management.) Brief History: This 73-year-old gentleman presents today for left total knee arthroplasty. He has had ongoing pain in the left knee, and this is in spite of of cortisone injection and anti-inflammatory medications. The patient continued with pain with normal activities of daily living and movement. He had a grinding and popping sensation in his knee. After discussion, he wished to proceed with left total knee arthroplasty. Risks and complications were discussed with him preoperatively, and consents were signed. Questions were answered. Procedure: The patient was brought to the operating theater, and after undergoing spinal anesthesia with supplemental MAC, as well as an adductor canal block, ASA 3, the left lower extremity was prepped with Dura-Prep and draped in usual fashion following placement of a tourniquet high on the leg. The leg was then draped free.? Tourniquet was not elevated during the case.? A surgical pause was performed, and at the time of the surgical pause, we confirmed the site and side of surgery. Additionally, we confirmed the appropriate and timely administration of preoperative antibiotics, Ancef 2 g and Transexemic acid 1 g.? The availability of equipment was confirmed, and the patient's identity was verbalized as well.? An additional transexemic acid 1 g was given at the end of the surgical procedure as well. Following the surgical pause, an incision was made centering over the patella continuing proximally and distally as necessary to allow access to the knee joint. Dissection continued through skin and soft tissues using a scalpel. Hemostasis was obtained using electrocautery. The skin incision was followed by a median parapatellar arthrotomy. The leg was extended and the patella was able to be displaced laterally.? Appropriate arrays and markers were placed in appropriate position for use of the Ajay.? Preoperative planning had been accomplished and was discussed in detail with the [facility] account development representative.? Intraoperative mapping of the femur and tibia was accomplished after the arrays were placed.? Internal markers were also placed.? Once we had accomplished the Ajay mapping, we began the appropriate resections for placement of the prosthesis.? The plan was for a cruciate retaining right total knee arthroplasty. Once appropriate mapping had been accomplished retraction was established using manual retraction by surgical technicians and also the Ajay leg positioner and retractors.? The knee was evaluated.? There was significant osteoarthritic change as well as slight flexion contracture.? Appropriate bone resection was accomplished using the Ajay.? The femur was sized to a size 6.? Following femoral cuts, attention was directed to the tibia.? Osteophytes were removed prior to this portion of the procedure.? We had performed a minimal medial release at the beginning of the procedure to allow for placement of the array.? Proximal tibia was evaluated, and it was felt that appropriate size for the tibia was a size 7.? Tray was noted to fit nicely with good coverage.? Rim fit was accomplished with the size 7. A trial reduction was accomplished after osteophytes have been removed as well as the medial and lateral menisci.? We had removed the anterior cruciate ligament at the beginning of the case and preserved the posterior cruciate ligament.? Trial reduction was accomplished with a size 6 femoral cruciate retaining component and a size 7 CS tibial bearing insert which was 9 mm in thickness initially.? Sequential increase in size of the insert was accomplished.? Final trial insert was a size 10 mm with plans for actual implant to be a size 11 mm.? Alignment was felt to be appropriate as well.? Trial components were removed after the femur had been drilled.? Prior to removal of the tibial tray which had been pinned in position with appropriate rotation as determined by the Ajay plan, we broached the tibia.? Subsequently, the 4 drill holes were made for the prosthetic component.? All trial components were removed, and the wound was irrigated.? Plans were made for insertion of the prosthetic components.? Prior to this, the patella was manually prepared.? After resection of the articular surface with the jogging system, it was measured and measured a 38 mm patella.? We resected approximately 10 mm of patella.? Patellar height was restored with the patellar component. Once again, the wound was irrigated.? The Tritanium tibia was impacted into position.? The beaded femur was then impacted into position in a cementless fashion. The CS tibial insert was placed prior to placement of the femoral component. The patella was pressed into position with a patellar clamp.? Exparel was injected about the components deep and superficially.? The knee was then copiously irrigated with betadine and saline and suctioned dry. Attention was then directed to closure. Closure was accomplished with 0 Vicryl in the fascial tissues.? The suture line of 0 Vicryl was supplemented with strata fix, #1, with a running stitch from proximal to distal and a second running stitch from distal to proximal. This was followed by Surgiflo and vancomycin powder.? Following this, a 2-0 Monocryl was used in the subcutaneous tissues, and the skin was closed with skin aarti.? Care was taken to assure an excellent subcutaneous as well as skin closure.? A sterile dressing was then placed consisting of Dermabond Prineo, OpSite, sterile soft roll including over the foot, and an Brian wrap. The patient was returned the Recovery Room in a satisfactory condition. X-rays were obtained and reviewed there.? The patient will be discharged to the floor for postoperative rehabilitation and pain management. Related Problem List Diagnoses (1) Primary osteoarthritis of left knee: (2) Varus deformity, not elsewhere classified, left knee: (3) Flexion contracture of left knee:
--- NOTE | 2023-05-26 11:45 | ANE.PACU2 ---
Inpatient post-anesthesia follow up: Airway intact: Yes Vital signs: Temperature 97.8 F Pulse Rate 79 Respiratory Rate 16 Blood Pressure 103/66 Pulse Oximetry 96 Oxygen Delivery Me thod Room Air Oxygen Flow Rate 8 Fraction of Inspir ed Oxygen Hydration adequate: Yes Nausea and vomiting: No Pain level: 1 Mental status: Baseline
[2023-05-26] MEDS: chlorhexidine gluconate 0.12% Btl 473 mL 30 ML MUCOUS MEM ×3 (12:37→20:28)
[2023-05-26] MEDS: tranexamic acid 1,000 MG/100 ML PREMIX 330 MG IV (15:07)
[2023-05-26] MEDS: sennosides-docusate Tablet 2 TAB PO (17:21)
[2023-05-26] MEDS: iron polysaccharide complex 150 mg Capsule PO (17:21)
[2023-05-26] MEDS: calcium carbonate 500 mg Chew Tablet 1000 MG PO (17:21)
[2023-05-26] MEDS: mupirocin oint 22 gm 1 APPLIC NASAL (17:35)
[2023-05-27] VITALS (10 sets, daily range): BP systolic 58–130; BP diastolic 36–75; PULSE 49–76; RESP 15–19; TEMP 36.7–37; O2SAT 94–99; BMI 34.1
[2023-05-27] MEDS: acetaminophen 1,000 MG/100 ML PIGGYBACK 400 MG IV (03:41)
[2023-05-27] MEDS: ceFAZolin 2,000 MG in sodium chloride 0.9% (plus) 50 ML 100 MG IV (04:05)
--- NOTE | 2023-05-27 05:27 | ECG_ITS ---
[facility] Test Date: 2023-05-27 Pat Name: Roly Adamson Department: Room: 254 Gender: Male Dictaphone Transcriber: : 1950 Requested By: Buffy Patiño Order Number: [id number] Julia MD: Tello Osborn M.D. Measurements Intervals [place] Rate: 66 P: 48 [place]: 162 QRS: 10 QRSD: 122 T: 15 QT: 416 QTc: 438 Interpretive Statements SINUS RHYTHM POSSIBLE RIGHT VENTRICULAR CONDUCTION DELAY [RSR (QR) IN V1/V2] Possible LATERAL MYOCARDIAL INFARCTION , OF INDETERMINATE AGE [35 ms Q WAVE IN I/aVL/V5/V6] WARNING: DATA QUALITY MAY AFFECT INTERPRETATION Compared to ECG 09/26/2020 05:18:30 Myocardial infarct finding now present Sinus tachycardia no longer present Electronically Signed On 05-27-2023 14:14:17 RADIOLOGY NURSE by Tello Osborn M.D. [email or web address]
[2023-05-27] MEDS: sodium chloride 0.9% 1,000 ML 999 ML IV (05:41)
--- NOTE | 2023-05-27 05:57 | PC.NURSE ---
Near syncopal episode: This nurse was called to the patient bedside by aid while obtaining v/s following the patient stating he felt lightheaded. The bp at this time was 58/36 with a HR in 50's. This nurse called o/c ortho Dr. Mederos for orders to correct at 0523. Telephone orders given for 1000 mL bolus of NS. Bolus started and patient placed in trendelenburg. After approximately 250 mL of NS bolus patient reported he was feeling better. Repeat BP was 120/56. Patient remained in this position for approximately 15 minutes and attempted to bring to a sitting position,but patient stated he felt off again. B/P at this time read was 124/74, but placed in trendelenburg again. At 0600 patient sat back to a sitting position in bed and states he feels fine and B/P is 122/66
[2023-05-27 06:11] LABS: Basophils # 0.1 10^3/uL (0.0-0.1); Basophils % 0.6 %; Eosinophils # 0.2 10^3/uL (0.0-0.8); Eosinophils % 1.6 %; Hematocrit 42.6 % (37-53); Lymphocytes # 1.7 10^3/uL (0.8-4.8); Mean Corpuscular HGB Conc 33.1 g/dL (30-55); Mean Corpuscular Hemoglobin 31.1 pg (27-33); Mean Platelet Volume 11.5 fL (7.4-10.4); Monocytes % 16.5 %; Neutrophils # 8.13 10^3/uL (1.8-7.7); Neutrophils % 67.1 %; Nucleated Red Blood Cells % 0 %; Platelet Count 308 10^3/cmm (157-399); Red Blood Count 4.53 10^6/uL (3.85-5.65); Red Cell Distribution Width 14.7 % (12.1-15.1); White Blood Count 12.11 10^3/uL (3.29-11.43)
[2023-05-27 06:18] LABS: Glucose Point of Care 100 mg/dL (70-110)
[2023-05-27 06:33] LABS: Blood Urea Nitrogen 14 mg/dL (8-23); Calcium 9.2 mg/dL (8.5-10.5); Carbon Dioxide 24 mmol/L (22-29); Chloride 104 mmol/L (98-107); Glucose 93 mg/dL (65-115); Osmolality Calculated 290 mOsm/kg (285-295); Sodium 140 mmol/L (136-145)
[2023-05-27] MEDS: cholecalciferol (vitamin D3) 1,000 unit Tablet 1000 UNIT PO (09:29)
[2023-05-27] MEDS: multivitamin therapeutic Tablet 1 TAB PO (09:29)
[2023-05-27] MEDS: iron polysaccharide complex 150 mg Capsule PO (09:29)
[2023-05-27] MEDS: atorvastatin 40 mg Tablet 20 MG PO (09:29)
[2023-05-27] MEDS: aspirin 325 mg EC Tablet PO (09:29)
[2023-05-27] MEDS: metoprolol succinate ER (24 HR) 50 mg Tablet PO (09:29)
[2023-05-27] MEDS: meloxicam 7.5 mg tablet 15 MG PO (09:29)
[2023-05-27] MEDS: calcium carbonate 500 mg Chew Tablet 1000 MG PO (09:29)
[2023-05-27] MEDS: chlorhexidine gluconate 0.12% Btl 473 mL 30 ML MUCOUS MEM ×2 (09:30→11:56)
[2023-05-27] MEDS: mupirocin oint 22 gm 1 APPLIC NASAL (09:30)
[2023-05-27] MEDS: sennosides-docusate Tablet 2 TAB PO (09:30)
[2023-05-27] MEDS: hydroCHLOROthiazide 25 mg Tablet 12.5 MG PO (09:30)
[2023-05-27] MEDS: oxyCODONE 5 mg IR Tab/Cap PO (09:33)
--- NOTE | 2023-05-27 14:07 | PM.DCS ---
Discharge Providers Date of Admission: 05/26/23 08:28 Date of Discharge: May 27, 2023 Attending Provider at Admission: Buffy Patiño MD Attending Provider at Discharge: Buffy Patiño MD Primary Care Provider: Robert Griffin DO Diagnoses at Discharge Discharge Diagnosis (1) Status post total left knee replacement not using cement: Status: Acute Permanent problem details: Date of procedure: May 26, 2023 Diagnosis: Severe degenerative arthritis left knee with varus deformity and flexion contracture Procedure done: Left total knee arthroplasty with Ajay guidance Implants: The PayPlug total knee system with a size 6 triathlon beaded cruciate retaining femur left, a triathlon titanium tibial component size 7 beaded, a triathlon X3 tibial bearing CS insert size 7 X 10 mm and a beaded triathlon titanium asymmetric patella size 38 x 11 mm (2) Primary osteoarthritis of left knee: Status: Acute (3) Varus deformity, not elsewhere classified, left knee: Status: Acute (4) Flexion contracture of left knee: Status: Acute Reason for Visit Reason for Visit: 59600 M17.10 Brief History: This 73-year-old gentleman presents today for left total knee arthroplasty.? He has had ongoing pain in the left knee, and this is in spite of of cortisone injection and anti-inflammatory medications.? The patient continued with pain with normal activities of daily living and movement.? He had a grinding and popping sensation in his knee.? After discussion, he wished to proceed with left total knee arthroplasty.? Risks and complications were discussed with him preoperatively, and consents were signed.? Questions were answered. Hospital Course Hospital Course This 73-year-old gentleman was admitted following same-day surgery under observation status for left total knee arthroplasty. Postoperatively, the patient did well. He worked with physical therapy and had no significant concerns. On the first postoperative day, he was felt to be independent and safe with physical therapy. He was ambulating uneventfully and independently. Dressings were removed. His knee was benign. He was cautioned against recurrence of flexion contracture and the need for keeping the knee straight. He was weightbearing as tolerated. There was no evidence of DVT, and he was neurologically intact. Physical Exam Const: COMMON NORMALS: no acute distress, average body habitus, patient oriented x3 and alert GENERAL APPEARANCE: cooperative and comfortable ORIENTATION/CONSCIOUSNESS: Yes awake HENMT: COMMON NORMALS: normocephalic and atraumatic HEAD & SCALP: normocephalic and atraumatic Eye: GENERAL EYE: appearance normal, both eyes and all related structures Chest: COMMONS NORMALS: normal inspection of the chest Resp: COMMON NORMALS: normal respiratory effort EFFORT & INSPECTION: Yes able to speak in complete sentences and Yes symmetric chest movement Extremity: LEFT LOWER EXTREMITY: Yes knee joint (Large outer dressing removed. Under dressing dry and intact) Left knee: Yes inspection (Minimal ecchymosis), Yes palpation (Minimal tenderness, no evidence of DVT), Yes ROM (Able to straight leg raise) and Yes neurovascular exam (Intact distally) Neuro: COMMON NORMALS: patient oriented x3 SENSORIUM/ORIENTATION: Yes alert Psych: COMMON NORMALS: mental status grossly normal APPEARANCE: Yes grossly normal ATTITUDE: Yes calm and Yes engaged ATTENTION/CONCENTRATION: Yes attention grossly intact Skin: COMMON NORMALS: no rashes or lesions noted GENERAL SKIN EXAM: no rashes or lesions noted Urinary Catheter Management: Wilkerson: Cath Placed During This Visit: yes, but has since been removed by the nurse Reason for Continuing Indwelling Catheter: Perioperative Use in Selected Surgeries Urinary Catheter Date of Insertion: 05/26/23 Urinary Catheter Time of Insertion: 07:35 Date Urinary Catheter Removed: 05/27/23 Time Urinary Catheter Discontinued: 05:19 Discharge Data Studies Completed and Pending Completed Studies During Hospitalization Category Date Time Status XR knee LT 3V* [id number] Urgent Exams 05/26/23 11:00 Completed Laboratory Results WBC 12.11 10^3/uL (3.29-11.43) H 05/27/23 05:14 RBC 4.53 10^6/uL (3.85-5.65) 05/27/23 05:14 Hgb 14.10 g/dL (11.27-16.99) 05/27/23 05:14 Hct 42.6 % (37-53) 05/27/23 05:14 MCV 94.0 fl (82-101) 05/27/23 05:14 MCH 31.1 pg (27-33) 05/27/23 05:14 MCHC 33.1 g/dL (30-55) 05/27/23 05:14 RDW 14.7 % (12.1-15.1) 05/27/23 05:14 Plt Count 308 10^3/cmm (157-399) 05/27/23 05:14 MPV 11.5 fL (7.4-10.4) H 05/27/23 05:14 Neut % (Auto) 67.1 % 05/27/23 05:14 Lymph % (Auto) 14.0 % 05/27/23 05:14 Caldwell % (Auto) 16.5 % 05/27/23 05:14 Eos % (Auto) 1.6 % 05/27/23 05:14 Baso % (Auto) 0.6 % 05/27/23 05:14 Neut # (Auto) 8.13 10^3/uL (1.8-7.7) H 05/27/23 05:14 Lymph # (Auto) 1.7 10^3/uL (0.8-4.8) 05/27/23 05:14 [place]dwell # (Auto) 2.0 10^3/uL (0.2-0.9) H 05/27/23 05:14 Eos # (Auto) 0.2 10^3/uL (0.0-0.8) 05/27/23 05:14 Baso # (Auto) 0.1 10^3/uL (0.0-0.1) 05/27/23 05:14 Nucleated RBC % (auto) 0 % 05/27/23 05:14 Nucleated RBCs # 0.0 /100WBC 05/27/23 05:14 Sodium 140 mmol/L (136-145) 05/27/23 05:14 Potassium 4.0 mmol/L (3.5-5.1) 05/27/23 05:14 Chloride 104 mmol/L (98-107) 05/27/23 05:14 Carbon Dioxide 24 mmol/L (22-29) 05/27/23 05:14 Anion Gap 16.0 (5-19) 05/27/23 05:14 BUN 14 mg/dL (8-23) 05/27/23 05:14 Creatinine 0.8 mg/dL (0.7-1.2) 05/27/23 05:14 GFR Calculation Not Reportable 05/27/23 05:14 Glucose 93 mg/dL (65-115) 05/27/23 05:14 POC Glucose 100 mg/dL (70-110) 05/27/23 05:21 Calculated Osmolality 290 mOsm/kg (285-295) 05/27/23 05:14 Calcium 9.2 mg/dL (8.5-10.5) 05/27/23 05:14 Vitals Last Vital Signs Temp 98.0 F 05/27/23 12:00 Pulse 76 05/27/23 12:00 Resp 15 05/27/23 12:00 BP 115/75 05/27/23 12:00 Pulse Ox 99 05/27/23 12:00 O2 Del Method Room Air 05/27/23 12:00 O2 Flow Rate 8 05/26/23 11:08 Discharge Plan Discharge Patient Disposition: Home Health Service Condition: Stable Prescriptions: New acetaminophen 500 mg Tablet 1,000 mg PO Q8H 15 Days Qty: 0 0RF aspirin 325 mg Tablet,Delayed Release (Dr/Ec) 325 mg PO DAILY 30 Days Qty: 0 0RF oxycodone 5 mg Tablet 5 mg PO Q4H PRN (Reason: Moderate Pain) 7 Days Qty: 30 0RF Continued nitroglycerin 0.4 mg tablet, sublingual 0.4 mg sublingual Q5M PRN (Reason: chest pain) Qty: 30 4RF Rx Instructions: do not exceed 3 doses per episode hyalorinic acid 1 tab PO 1XD (DME) cpap supplies See Rx Instructions .Route .MEDSUPPLY Qty: 1 11RF Rx Instructions: respironics comfort gel blue Full face XL Vitamin C 1,000 mg Tablet 500 mg PO DAILY metoprolol succinate 50 mg tablet extended release 24 hr 50 mg PO DAILY Rx Instructions: Take 1 tablet by mouth once daily meloxicam 15 mg tablet 15 mg PO DAILY Rx Instructions: TAKE 1 TABLET BY MOUTH ONCE DAILY STOP IBUPROFEN WHILE ON MELOXICAM lovastatin 20 mg tablet 20 mg PO DAILY Rx Instructions: Take 1 tablet by mouth once daily hydrochlorothiazide 12.5 mg tablet 12.5 mg PO DAILY Rx Instructions: TAKE 1 TABLET BY MOUTH ONCE DAILY IN THE MORNING Held aspirin [Adult Low Dose Aspirin] 81 mg tablet,delayed release (DR/EC) 81 mg PO QDAY Hold Instructions: Resume on 06/24/23. Resume after 30 days of full-strength aspirin for DVT prophylaxis Discharge Orders: Discharge Order (Routine); Ordered 05/27/23 Ordered By: Buffy Dundas Referrals: [facility] [Outside] Buffy Patiño MD [Physician] - 06/09/23 1:00 pm Discharge Diet: Advance as tolerated, Usual diet and As Directed Discharge Activity: Increase activity as tolerated, Limit activity as instructed, Use walker/crutches as instructed and As per PT/OT instructions Patient Instructions: Acetaminophen (By mouth), Aspirin (By mouth), Oxycodone, Rapid Release (By mouth), Total Knee Replacement (GEN), Joint Replacement Stoplight Activity Restrictions/Additional Instructions: Weight-bear as tolerated. Total knee protocol for weightbearing as tolerated, range of motion, and strengthening. Work with home physical therapy prior to transitioning to outpatient therapy. Discharge Attestations Time Spent in Discharge Care*: greater than 30 min Specific Discharge Activities: educating patient, documenting/other paperwork and evaluating patient/reviewing data Quality Metrics Clinical Quality Measures [ No reported AMI, CVA or VTE this stay] Coding Level of Care Code Acute Code for Chg Fwd Diagnoses Status post total left knee replacement not using cement Z96.652 Primary osteoarthritis of left knee M17.12 Varus deformity, not elsewhere classified, left knee M21.162 Flexion contracture of left knee M24.562
== END 2023-05-27 15:27 | disposition home health service (06) ==
LOC: MEDSURG 08:29
PROVIDERS: Admitting Provider Specialist; PCP Family Medicine; Visit Provider Specialist
PROC: 8E0Y0CZ Robotic Assisted Procedure of Lower Extremity, Open Approach (ICD-10-PCS; CPT 27447; principal; 2023-05-26 07:00)
DX: M17.12 Unilateral primary osteoarthritis, left knee (principal); M24.562 Contracture, left knee; M21.162 Varus deformity, not elsewhere classified, left knee; I25.10 Atherosclerotic heart disease of native coronary artery without angina pectoris; I10 Essential (primary) hypertension; E78.5 Hyperlipidemia, unspecified; Z79.82 Long term (current) use of aspirin; Z95.5 Presence of coronary angioplasty implant and graft; Z87.891 Personal history of nicotine dependence
CPT/HCPCS: 20985; 27447; 36415; 36416; 51702; 73562; 80048; 82962; 85025; 93005; 97110; 97116; 97161; 97165; 97530; C1776; C9290; G0378; J0131; J0690; J1100; J2371; J2704; J2795; J3010; J3370; J3490; J7030

== ENCOUNTER → 2023-06-09 13:17 | Outpatient (BNVA) | payer MEDICARE, SELFPAY | PROVIDERS: PCP Family Medicine; Visit Provider Nurse Practitioner | DX: Z96.652 Presence of left artificial knee joint (principal); M17.12 Unilateral primary osteoarthritis, left knee | CPT/HCPCS: 73560; 73565; 99024 ==

== ENCOUNTER 2023-06-15 06:00 | Outpatient (RCR) | payer MEDICARE, SELFPAY | END 2023-07-10 23:59 | disposition home or self-care (01) | LOC: MPT 06:00 | PROVIDERS: PCP Family Medicine; Visit Provider Nurse Practitioner | DX: Z47.1 Aftercare following joint replacement surgery (principal); Z96.652 Presence of left artificial knee joint | CPT/HCPCS: 97110; 97140; 97162; G0283 ==

== ENCOUNTER 2023-07-11 06:00 | Outpatient (RCR) | payer MEDICARE, SELFPAY | END 2023-07-28 23:59 | disposition home or self-care (01) | LOC: MPT 06:00 | PROVIDERS: PCP Family Medicine; Visit Provider Nurse Practitioner | DX: Z47.1 Aftercare following joint replacement surgery (principal); Z96.652 Presence of left artificial knee joint | CPT/HCPCS: 97110; G0283 ==

== ENCOUNTER → 2023-07-13 13:12 | Outpatient (BNVA) | payer MEDICARE, SELFPAY | PROVIDERS: PCP Family Medicine; Visit Provider Nurse Practitioner | DX: Z96.652 Presence of left artificial knee joint (principal); M17.12 Unilateral primary osteoarthritis, left knee | CPT/HCPCS: 73560; 73565; 99024 ==

== ENCOUNTER → 2023-08-17 13:09 | Outpatient (BNVA) | payer MEDICARE, SELFPAY | PROVIDERS: PCP Family Medicine; Visit Provider Nurse Practitioner | DX: Z96.652 Presence of left artificial knee joint (principal); M17.12 Unilateral primary osteoarthritis, left knee; L24.89 Irritant contact dermatitis due to other agents | CPT/HCPCS: 73560; 73565; 99213 ==

== ENCOUNTER → 2023-11-14 10:19 | Outpatient (BNVA) | payer MEDICARE, SELFPAY | PROVIDERS: PCP Nurse Practitioner; Visit Provider Nurse Practitioner | DX: I25.10 Atherosclerotic heart disease of native coronary artery without angina pectoris (principal); I10 Essential (primary) hypertension; R73.9 Hyperglycemia, unspecified | CPT/HCPCS: 80053; 80061; 81000; 83036 ==

== ENCOUNTER → 2023-12-06 12:20 | Outpatient (BNVA) | payer MEDICARE, SELFPAY | PROVIDERS: PCP Family Medicine; Visit Provider Internal Medicine Cardiovascular Disease | DX: I25.10 Atherosclerotic heart disease of native coronary artery without angina pectoris (principal); I10 Essential (primary) hypertension; E66.01 Morbid (severe) obesity due to excess calories; Z68.41 Body mass index [BMI] 40.0-44.9, adult; Z95.5 Presence of coronary angioplasty implant and graft; Z87.891 Personal history of nicotine dependence | CPT/HCPCS: 99213 ==

== ENCOUNTER → 2024-05-17 08:37 | Outpatient (BNVA) | payer MEDICARE, SELFPAY | PROVIDERS: PCP Nurse Practitioner; Referring Provider Nurse Practitioner; Visit Provider Nurse Practitioner | DX: I25.10 Atherosclerotic heart disease of native coronary artery without angina pectoris (principal) | CPT/HCPCS: 80061 ==

== ENCOUNTER → 2024-05-28 16:35 | Outpatient (BNVA) | payer MEDICARE, SELFPAY | PROVIDERS: PCP Nurse Practitioner; Visit Provider Nurse Practitioner Family | DX: R07.9 Chest pain, unspecified (principal); I25.10 Atherosclerotic heart disease of native coronary artery without angina pectoris | CPT/HCPCS: 93005 ==

== ENCOUNTER → 2024-06-04 09:40 | Outpatient (BNVA) | payer MEDICARE, SELFPAY | PROVIDERS: PCP Nurse Practitioner; Visit Provider Nurse Practitioner | DX: Z96.652 Presence of left artificial knee joint (principal); M17.12 Unilateral primary osteoarthritis, left knee; L24.89 Irritant contact dermatitis due to other agents | CPT/HCPCS: 73560; 73565; 99213 ==

== ENCOUNTER → 2024-11-13 08:53 | Outpatient (BNVA) | payer MEDICARE, SELFPAY | PROVIDERS: PCP Nurse Practitioner; Visit Provider Nurse Practitioner | DX: I10 Essential (primary) hypertension (principal); R73.9 Hyperglycemia, unspecified; I25.10 Atherosclerotic heart disease of native coronary artery without angina pectoris | CPT/HCPCS: 80053; 80061; 83036; 85025 ==

== ENCOUNTER 2024-11-15 13:54 | Emergency (ER) | payer MEDICARE, SELFPAY ==
[2024-11-15] VITALS (11 sets, daily range): BP systolic 101–154; BP diastolic 73–92; PULSE 87–104; RESP 16–17; TEMP 37.2; O2SAT 94–98; BMI 35.9
[2024-11-15 14:56] LABS: Basophils # 0.1 10^3/uL (0.0-0.1); Basophils % 0.8 %; Eosinophils # 0.2 10^3/uL (0.0-0.8); Eosinophils % 1.7 %; Hematocrit 49.4 % (37-53); Lymphocytes # 1.2 10^3/uL (0.8-4.8); Lymphocytes % 10.1 %; Mean Corpuscular HGB Conc 33.2 g/dL (30-55); Mean Corpuscular Hemoglobin 30.9 pg (27-33); Mean Corpuscular Volume 93.2 fl (82-101); Mean Platelet Volume 10.9 fL (7.4-10.4); Monocytes # 1.6 10^3/uL (0.2-0.9); Monocytes % 13.4 %; Neutrophils # 8.86 10^3/uL (1.8-7.7); Neutrophils % 73.5 %; Nucleated Red Blood Cells % 0 %; Platelet Count 273 10^3/cmm (157-399); Red Cell Distribution Width 13.9 % (12.1-15.1); White Blood Count 12.07 10^3/uL (3.29-11.43)
[2024-11-15 15:18] LABS: Alanine Aminotransferase 15 U/L (0-41); Alkaline Phosphatase 54 U/L (40-130); Blood Urea Nitrogen 15 mg/dL (8-23); Carbon Dioxide 21 mmol/L (22-29); Chloride 102 mmol/L (98-107); Creatinine Clr Calc Pharmacy 99.0004; Globulin 2.9 g/dL (1.3-4.6); Glucose 103 mg/dL (65-115); Lipase 33 U/L (13-60); Osmolality Calculated 285 mOsm/kg (285-295); Sodium 137 mmol/L (136-145); Total Bilirubin 0.6 mg/dL (0.15-1.2); Total Protein 6.9 g/dL (6.6-8.7)
[2024-11-15 15:23] LABS: Anion Gap 19.1 (5-19); Aspartate Amino Transferase 18 U/L (0-40); Potassium 5.1 mmol/L (3.5-5.1)
--- NOTE | 2024-11-15 17:07 | ED_ITS ---
HPI - Abdominal Pain 2 General: Chief Complaint: Abdominal Pain Stated Complaint: abd pain Time Seen by Provider: 11/15/24 16:37 Source: patient History of Present Illness: Patient is a male who presents with episodic epigastric pain that started one week ago on Tuesday evening. The pain is located right below the rib cage in the center. Patient describes the pain as coming and going, becoming excruciating at times before suddenly resolving. He reports a similar episode three weeks ago that lasted a couple of hours. Associated symptoms include diarrhea. Patient has had minimal oral intake since symptom onset and reports a 14-pound weight loss (from 250 to 236 pounds). Pain is noted to worsen after eating. Patient attempted self-treatment by fasting from Tuesday night until Tuesday morning, consuming only water. Of note, patient also experienced elevated blood pressure this morning with readings of 154/100, which he attributes to the pain. Related Data Home Medications ?Medication ?Instructions ?Recorded ?Confirmed aspirin 81 mg tablet,delayed 81 mg PO DAILY 06/02/24 0 11/13/24 release (Adult Low Dose Aspirin) Previous Rx's ?Medication ?Instructions ?Recorded cpap supplies #1 ea 11/26/22 metoprolol succinate 50 mg See Rx Instructions .Route 04/24/24 tablet,extended release 24 hr .COMPLEX #90 tabs nitroglycerin 0.4 mg sublingual 0.4 mg sublingual Q5M PRN chest 06/06/24 tablet pain #20 tabs meloxicam 15 mg tablet See Rx Instructions .Route 0 11/05/24 .COMPLEX #30 tabs omeprazole 40 mg capsule,delayed 40 mg PO DAILY #30 ca ps 11/13/24 release Allergies Allergy/AdvReac Type Severity Reaction Status Date / Time No Known Allergies Allergy Verified 11/13/24 08:27 [facility] ED 2 PFS: Medical History (Updated 11/15/24 @ 21:55 by Osorio Woodson MD) Ulcerative colitis Contact dermatitis Adrenal mass Presence of drug-eluting stent in left circumflex coronary artery stent X2 in 2016, overlapping stent in December 2017. HTN (hypertension) Cardiovascular disease with arteriosclerosis Surgical History History of heart artery stent He has two stents and the last one put in was 2017- in [place] History of hemicolectomy Family History Brother Myocardial infarction CAD (coronary artery disease) Mother , AT 81 Cancer LUNG, BREAST Sister Cancer Grandfather Cancer Father , AT AGE 57 Kyphosis deformity of spine Denies family history of Diabetes Clotting disorder Dementia Hyperlipidemia Psychiatric illness Chronic kidney disease (CKD) Suicide Anesthesia complication Bleeding disorder Family history of premature coronary artery disease Lung disease Hypertension Stroke Social History Smoking and tobacco/nicotine status: former use of tobacco/nicotine Quit status (tobacco/nicotine): has quit using Year quit tobacco: 2009 Alcohol intake: current Alcohol intake frequency: few times a week Substance/Drug Use: never Marital status: Current occupational status: employed Current occupation: [employer] Physical Exam 2 Const: COMMON NORMALS: no acute distress, average body habitus, alert and well nourished GENERAL APPEARANCE: cooperative ORIENTATION/CONSCIOUSNESS: Yes awake HENMT: COMMON NORMALS: normocephalic and atraumatic HEAD & SCALP: n ormocephalic and atraumatic Eye: COMMON NORMALS: conjunctivae normal CONJUNCTIVA: Yes conjunctivae normal Neck/C-Spine: GENERAL: Yes normal visual inspection Resp: COMMON NORMALS: normal respiratory effort, No retractions and No use of accessory muscles Cardio: COMMON NORMALS: regular rhythm and Peripheral pulses 2+ throughout RHYTHM: regular rhythm PERIPHERAL PULSES: Peripheral pulses 2+ throughout GI: COMMON NORMALS: Soft to palpation and non-tender PALPATION: Yes Soft to palpation Extremity: COMMON NORMALS: full ROM and no pedal edema Neuro: COMMON NORMALS: no focal motor deficits SENSORIUM/ORIENTATION: Yes alert Skin: COMMON NORMALS: no rashes or lesions noted GENERAL SKIN EXAM: no rashes or lesions noted Course 2 Vital Signs: Vital signs: Vital Signs Temperature 99.0 F 11/15/24 14:10 Pulse Rate 97 11/15/24 21:00 Respiratory Rate 16 11/15/24 17:04 Blood Pressure 122/81 11/15/24 21:00 Pulse Oximetry 96 11/15/24 21:00 Oxygen Delivery Me thod Room Air 11/15/24 21:00 MDM - Abdominal Pain Medical Decision Making Review of Systems: Constitutional: Reports significant weight loss Gastrointestinal: Positive for epigastric pain and diarrhea. Denies nausea or vomiting Cardiovascular: History of tachycardia All other systems reviewed and negative Medications: Metoprolol - for heart rate control Past Surgical History: Hemicolectomy Knee replacement Appendectomy Social History: Denies alcohol use Physical Exam: General: Well-appearing, no acute distress Abdomen: No abdominal tenderness, no guarding or rebound - Negative Summers's sign - No tenderness at McBurney's point Lab Results: Pending Imaging and Other Relevant Results: Pending Medical Decision Making: Summary Statement: Middle-aged male presenting with episodic epigastric pain, post-prandial exacerbation, and diarrhea, concerning for possible gallbladder disease versus pancreatitis. Problem List: 1. Episodic epigastric pain 2. Diarrhea 3. Weight loss 4. Hypertension Differential Diagnosis: 1. Cholelithiasis/Cholecystitis 2. Acute pancreatitis 3. Enteritis 4. Gastritis 5. Peptic ulcer disease ED Course: Patient to undergo laboratory evaluation including pancreatic enzymes and hepatic function panel. Will consider imaging based on laboratory results. Assessment and Plan: 1. Epigastric Pain: - Obtain comprehensive metabolic panel, lipase, amylase to evaluate for pancreatitis - Consider right upper quadrant ultrasound to evaluate gallbladder - Pain management as needed 2. Diarrhea: - Likely related to underlying process - Monitor hydration status 3. Hypertension: - Continue home medications - Monitor blood pressure 4. Disposition pending laboratory and imaging results Patient CT scan is concerning for recurrent mass around the ileocolic anastomosis with marked thickening and infiltration of the mesentery and concerning for partial obstruction. General surgery has evaluated the patient in the ER and reviewed his CT. They recommend transfer to tertiary care facility with gastroenterology and colorectal surgery. I spoke with Dr. Huerta at [facility] with surgery who agreed with transfer to that facility and requested admission to the hospitalist service. I subsequently spoke with Dr. Musa who has accepted the patient as a transfer to that facility. He did request lactic acid, blood culture and Zosyn be administered which has been ordered. Lab Data I reviewed the patient's lab results. 11/15/24 14:36 11/15/24 14:36 Labs/Radiology: Radiology Impressions Abdomen/Pelvis CT 11/15/24 17:07 IMPRESSION: 1. Marked abnormality residual transverse colon just distal to ileocolic anastomosis with features including marked wall thickening adjacent fat infiltration with adenopathy, and area of marked luminal narrowing. The abnormal loop is distended in its proximal portion there is also fluid distension of more proximal small bowel loops suggesting component of partial obstruction. Possible contributing factors to this appearance included recurrent neoplasm, infection and, less likely ischemia. 2. Minor findings noted above. COMMENTS: Consistent with the [employer]'s Incidental Findings Committee white paper (J Am Colt Radiol 2018): Any incidental renal lesion less than 1 cm or classified as too small to characterize, or any incidental cystic renal lesion characterized as simple-appearing, is likely benign. No follow-up imaging is recommended for these lesions per consensus recommendations based on imaging criteria. Laboratory Results WBC 12.07 10^3/uL (3.29-11.43) H 11/15/24 14:36 RBC 5.30 10^6/uL (3.85-5.65) 11/15/24 14:36 Hgb 16.40 g/dL (11.27-16.99) 11/15/24 14:36 Hct 49.4 % (37-53) 11/15/24 14:36 MCV 93.2 fl (82-101) 11/15/24 14:36 MCH 30.9 pg (27-33) 11/15/24 14:36 MCHC 33.2 g/dL (30-55) 11/15/24 14:36 RDW 13.9 % (12.1-15.1) 11/15/24 14:36 Plt Count 273 10^3/cmm (157-399) 11/15/24 14:36 MPV 10.9 fL (7.4-10.4) H 11/15/24 14:36 Neut % (Auto) 73.5 % 11/15/24 14:36 Lymph % (Auto) 10.1 % 11/15/24 14:36 Brantley % (Auto) 13.4 % 11/15/24 14:36 Eos % (Auto) 1.7 % 11/15/24 14:36 Baso % (Auto) 0.8 % 11/15/24 14:36 Neut # (Auto) 8.86 10^3/uL (1.8-7.7) H 11/15/24 14:36 Lymph # (Auto) 1.2 10^3/uL (0.8-4.8) 11/15/24 14:36 Brantley # (Auto) 1.6 10^3/uL (0.2-0.9) H 11/15/24 14:36 Eos # (Auto) 0.2 10^3/uL (0.0-0.8) 11/15/24 14:36 Baso # (Auto) 0.1 10^3/uL (0.0-0.1) 11/15/24 14:36 Nucleated RBC % (auto) 0 % 11/15/24 14:36 Nucleated RBCs # 0.0 /100WBC 11/15/24 14:36 Sodium 137 mmol/L (136-145) 11/15/24 14:36 Potassium 5.1 mmol/L (3.5-5.1) 11/15/24 14:36 Chloride 102 mmol/L (98-107) 11/15/24 14:36 Carbon Dioxide 21 mmol/L (22-29) L 11/15/24 14:36 Anion Gap 19.1 (5-19) H 11/15/24 14:36 BUN 15 mg/dL (8-23) 11/15/24 14:36 Creatinine 0.6 mg/dL (0.7-1.2) L 11/15/24 14:36 GFR Calculation Not Reportable 11/15/24 14:36 Glucose 103 mg/dL (65-115) 11/15/24 14:36 Calculated Osmolality 285 mOsm/kg (285-295) 11/15/24 14:36 Calcium 9.0 mg/dL (8.5-10.5) 11/15/24 14:36 Total Bilirubin 0.6 mg/dL (0.15-1.2) 11/15/24 14:36 AST 18 U/L (0-40) 11/15/24 14:36 ALT 15 U/L (0-41) 11/15/24 14:36 Alkaline Phosphatase 54 U/L (40-130) 11/15/24 14:36 Total Protein 6.9 g/dL (6.6-8.7) 11/15/24 14:36 Albumin 4.0 g/dL (3.5-5.2) 11/15/24 14:36 Globulin 2.9 g/dL (1.3-4.6) 11/15/24 14:36 Lipase 33 U/L (13-60) 11/15/24 14:36 Urine Color Yellow (Yellow) 11/15/24 17:00 Urine Appearance Clear (CLEAR) 11/15/24 17:00 Urine pH 5.5 (5-7) 11/15/24 17:00 Ur Specific [place] 1.024 (1.005-1.030) 11/15/24 17:00 Urine Protein Negative (Negative) 11/15/24 17:00 Urine Glucose (UA) Negative (Normal) 11/15/24 17:00 Urine Ketones 2+ (Negative) H 11/15/24 17:00 Urine Blood Negative (Negative) 11/15/24 17:00 Urine Nitrate Negative (Negative) 11/15/24 17:00 Urine Bilirubin Negative (Negative) 11/15/24 17:00 Urine Urobilinogen 1.0 mg/dL (Negative) 11/15/24 17:00 Ur Leukocyte Esterase Negative (Negative) 11/15/24 17:00 Urine RBC 0-2 /hpf (0-2) 11/15/24 17:00 Urine WBC 0-5 /hpf (0-5) 11/15/24 17:00 Ur Squamous Epith Cells 0-5 /hpf (0-5) 11/15/24 17:00 Amorphous Sediment Not Reportable 11/15/24 17:00 Urine Bacteria None seen /hpf (NONE) 11/15/24 17:00 Hyaline Casts 1.21 /lpf 11/15/24 17:00 All radiology interpretation(s) finalized by discharge Discharge Plan Discharge Patient Disposition: Xfer Short-Term Hosp Clinical Impression: Colonic mass, Partial bowel obstruction Condition: Stable Referrals: Johanny Hatch FNP [Primary Care Provider, Nurse Practitioner] Print Language: Arabic Coding Level of Care Code ED Wire Steward for Guera Fuentes
--- NOTE | 2024-11-15 17:07 | CTR_ITS ---
PROCEDURE INFORMATION: Exam: CT Abdomen And Pelvis With Contrast Exam date and time: 11/15/2024 5:43 PM Age: 74 years old Clinical indication: Abdominal pain; Generalized; Prior surgery; Surgery date: 6+ months; Surgery type: Hemicolectomy x25 yrs; Additional info: Upper abdominal pain, HX of hemicolectomy TECHNIQUE: Imaging protocol: Computed tomography of the abdomen and pelvis with contrast. Radiation optimization: All CT scans at this facility use at least one of these dose optimization techniques: automated exposure control; mA and/or kV adjustment per patient size (includes targeted exams where dose is matched to clinical indication); or iterative reconstruction. Contrast material: OMNIPAQUE 350; Contrast volume: 100 ml; Contrast route: INTRAVENOUS (IV); COMPARISON: 1. CR XR acute abdomen series [id number] 09/02/2019 12:[address] angio chest w abd pel w con 09/26/2020 6:33 AM RADIATION DOSE METRICS: Total DLP (mGy-cm): 1023.63 FINDINGS: Lungs: Stable 5 x 3 mm right middle lobe nodule on series 4, image 2 consistent with benign pathology. Other smaller basilar pulmonary nodules are also unchanged. Coronary arteries: Coronary artery calcifications. Diaphragm: Small hiatal hernia. Liver: No significant liver pathology. Gallbladder and biliary ducts: No significant gallbladder pathology. No biliary dilatation. Pancreas: No significant pancreatic pathology. Spleen: No significant splenic pathology. Adrenal glands: Stable 2.7 cm left adrenal nodule, indeterminate by criteria but consistent with adenoma given stability. Right adrenal gland is unremarkable. Kidneys and ureters: Subcentimeter renal cortical hypodensities, indeterminate by criteria but statistically most likely representing cysts. Stomach and bowel: Features of prior right hemicolectomy again noted. There is marked abnormality of the residual proximal transverse colon with features including wall thickening in distension with bubbly material in the seen on series 4, image 32. Near the distal aspect of the abnormality there is marked mural thickening and luminal narrowing on series 4, image 46. There is a abundant fluid in the colon distal to this abnormality. There are fluid-filled mildly dilated small bowel loops just proximal to the ileocolic anastomosis. Intraperitoneal space: No ascites or free air. Vasculature: 2.6 cm infrarenal abdominal aortic ectasia. Lymph nodes: There is a abundant lymphadenopathy in the mesenteric and omental fat adjacent to the aforementioned bowel abnormality with the individual nodes measuring up to 1.3 cm in diameter with rounded morphology (example series 4, image 37, series 4, image 33, etc.). Urinary bladder: Mild urinary bladder wall thickening. Reproductive: Prostate is mildly enlarged. Bones/joints: L5 spondylolysis with L5-S1 spondylolisthesis and degenerative disc disease. Soft tissues: Small bilateral fat containing inguinal hernias. CT/CT abdomen pelvis w con* [id number] IMPRESSION: 1. Marked abnormality residual transverse colon just distal to ileocolic anastomosis with features including marked wall thickening adjacent fat infiltration with adenopathy, and area of marked luminal narrowing. The abnormal loop is distended in its proximal portion there is also fluid distension of more proximal small bowel loops suggesting component of partial obstruction. Possible contributing factors to this appearance included recurrent neoplasm, infection and, less likely ischemia. 2. Minor findings noted above. COMMENTS: Consistent with the [employer]'s Incidental Findings Committee white paper (J Am Colt Radiol 2018): Any incidental renal lesion less than 1 cm or classified as too small to characterize, or any incidental cystic renal lesion characterized as simple-appearing, is likely benign. No follow-up imaging is recommended for these lesions per consensus recommendations based on imaging criteria.
[2024-11-15 17:28] LABS: Bilirubin Urine Negative (Negative); Blood Urine Negative (Negative); Glucose Urine UA Negative (Normal); Ketones Urine 2+ (Negative); Leukocyte Esterase Urine Negative (Negative); Nitrate Urine Negative (Negative); Protein Urine Negative (Negative); Specific Gravity, Urine 1.024 (1.005-1.030); Urine Appearance Clear (CLEAR); Urine Color Yellow (Yellow); pH Urine 5.5 (5-7)
[2024-11-15 17:34] LABS: Add Urine Microscopic? YES; Bacteria Urine None Seen /hpf; Hyaline Casts Urine 1.21 /lpf; RBC Urine 0-2 /hpf (0-2); Squamous Epithelial Cell Urine 0-5 /hpf (0-5); WBC Urine 0-5 /hpf (0-5)
[2024-11-15] MEDS: iohexol 350 mg/mL 500 mL Btl (per mL) IV (17:47)
--- NOTE | 2024-11-15 19:47 | P.CONIM_ITS ---
Providers/Reason For Consult 2 Consulting Physician/Specialty*: General Surgery Reason for Consult*: Colon mass Primary Care Provider: Johanny Hatch APN History of Present Illness History of Present Illness Roly Adamson is a 74 year old male with a history of ulcerative colitis who underwent a right hemicolectomy almost 20 years ago for a mass, according to the patient he was not told he was cancer but since then he has never had a colonoscopy. Has been having worsening abdominal pain over the last few months that has gotten worse this week. According to the patient the abdominal pain is colicky it is very intense that he hears gurgling in his stomach and the pain momentarily subsides. He is having liquid stool on a daily basis. Review of Systems 2 General: Reports: 10 or more systems reviewed and unremarkable except in HPI and below Medications/Allergies Home Medications ?Medication ?Instructions ?Recorded ?Confirmed ?Last Taken ?Type cpap supplies #1 ea 11/26/22 11/13/24 Unkn own Rx metoprolol succinate 50 mg See Rx Instructions .Route 04/24/24 11/13/24 Unknown Rx tablet,extended release 24 hr .COMPLEX #90 tabs aspirin 81 mg tablet,delayed 81 mg PO DAILY 06/02/24 0 11/13/24 Unknown History release (Adult Low Dose Aspirin) nitroglycerin 0.4 mg sublingual 0.4 mg sublingual Q5M PRN chest 06/06/24 11/13/24 Unknown Rx tablet pain #20 tabs meloxicam 15 mg tablet See Rx Instructions .Route 0 11/05/24 11/13/24 Unknown Rx .COMPLEX #30 tabs omeprazole 40 mg capsule,delayed 40 mg PO DAILY #30 ca ps 11/13/24 11/13/24 Unknown Rx release Allergies Allergy/AdvReac Type Severity Reaction Status Date / Time No Known Allergies Allergy Verified 11/13/24 08:27 PFSH Acute 2 PFSH: Medical History (Updated 11/15/24 @ 19:51 by Get Nelson MD) Ulcerative colitis Contact dermatitis Adrenal mass Presence of drug-eluting stent in left circumflex coronary artery stent X2 in 2016, overlapping stent in December 2017. HTN (hypertension) Cardiovascular disease with arteriosclerosis Surgical History History of heart artery stent He has two stents and the last one put in was 2017- in [place] History of hemicolectomy Family History Brother Myocardial infarction CAD (coronary artery disease) Mother , AT 81 Cancer LUNG, BREAST Sister Cancer Grandfather Cancer Father , AT AGE 57 Kyphosis deformity of spine Denies family history of Diabetes Clotting disorder Dementia Hyperlipidemia Psychiatric illness Chronic kidney disease (CKD) Suicide Anesthesia complication Bleeding disorder Family history of premature coronary artery disease Lung disease Hypertension Stroke Social History Smoking and tobacco/nicotine status: former use of tobacco/nicotine Quit status (tobacco/nicotine): has quit using Year quit tobacco: 2009 Alcohol intake: current Alcohol intake frequency: few times a week Substance/Drug Use: never Marital status: Current occupational status: employed Current occupation: [employer] Vitals/I&O/Wt Last Vital Signs Temp 99.0 F 11/15/24 14:10 Pulse 90 11/15/24 19:00 Resp 16 11/15/24 17:04 BP 121/76 11/15/24 18:30 Pulse Ox 96 11/15/24 19:00 O2 Del Method Room Air 11/15/24 19:00 Weight last 48 hrs Weight 236 lb Physical Exam 2 Narrative: Abdominal examination shows an abdomen that is soft there are some epigastric and left upper quadrant tenderness, no guarding Data 11/15/24 14:36 11/15/24 14:36 A&P Assessment and plan (1) Epigastric abdominal tenderness: (2) Ulcerative colitis: (3) Colonic mass: Plan I was consulted for a 74-year-old male with a history of ulcerative colitis on right Artemio colectomy about 20 years ago who has not had a colonoscopy since then. Presents with colicky abdominal pain and liquid stools for quite some time. According to the patient he has also lost appetite and every time he eats the pain becomes a longer. He got a CT scan of the abdomen pelvis here shows evidence of a abnormal ileocolonic anastomosis with severe thickening disruption of the pericolonic fat and several lymph nodes concerning for malignancy. His white count is 12. There is no free air in the abdomen. There is some mild dilation of the proximal bowel loops. 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 Patient will require additional workup by gastroenterology and colorectal surgery that may include colonoscopy and need for resection. Due to the technical complexity of managing a patient with ulcerative colitis with recurrent colonic mass and who will require resection in the setting I think the presumption for the patient will be transferred to higher level of care for evaluation for GI and colorectal surgery. While this being just a manifestation of ulcerative colitis is a possibility I think this possibility is low as the appearance in the CT scan is more likely compatible with colonic malignancy with infiltration of the pericolonic fat. Discussed the plan with the patient and ER provider who agree. Patient is stable at the time of my evaluation. PDMP PDMP Reviewed: Not Reviewed Coding Level of Care Code Acute Code for Chg Fwd Diagnoses Epigastric abdominal tenderness R10.816 Ulcerative colitis K51.90 Colonic mass K63.89
[2024-11-15] MEDS: piperacillin-tazobactam 4.5 GM in sodium chloride 0.9% (plus) 50 ML IV (22:25)
[2024-11-15 22:48] LABS: Lactic Sepsis W/Reflex 1.1 mmol/L (0.5-2.2)
--- NOTE | 2024-11-15 23:29 | PC.NURSE ---
pt report called to [facility] to Mynor Wellington RN. Pt IV removed with catheter intact d/t pt leaving POV.
== END 2024-11-15 23:43 | disposition short-term general hospital (02) ==
PROVIDERS: Physician Assistant; Emergency Provider Student in an Organized Health Care Education/Training Program; PCP Nurse Practitioner
DX: K56.600 Partial intestinal obstruction, unspecified as to cause (principal); K63.89 Other specified diseases of intestine; Z87.891 Personal history of nicotine dependence; I10 Essential (primary) hypertension
CPT/HCPCS: 36415; 74177; 80053; 81001; 83605; 83690; 85025; 87040; 87077; 87150; 87186; 87205; 96365; 99285; J2543

== ENCOUNTER → 2024-11-28 13:57 | Outpatient (BNVA) | payer MEDICARE, SELFPAY | PROVIDERS: PCP Nurse Practitioner; Visit Provider Nurse Practitioner | DX: K51.90 Ulcerative colitis, unspecified, without complications (principal) | CPT/HCPCS: 80053; 85025 ==

== ENCOUNTER → 2024-11-29 13:37 | Outpatient (BNVA) | payer MEDICARE, SELFPAY | PROVIDERS: PCP Nurse Practitioner; Visit Provider Internal Medicine Cardiovascular Disease | DX: I97.191 Other postprocedural cardiac functional disturbances following other surgery (principal); R00.0 Tachycardia, unspecified; E86.0 Dehydration; Z87.891 Personal history of nicotine dependence | CPT/HCPCS: 99214 ==

== ENCOUNTER → 2024-12-12 08:39 | Outpatient (BNVA) | payer MEDICARE, SELFPAY | PROVIDERS: PCP Nurse Practitioner; Visit Provider Nurse Practitioner | DX: K51.90 Ulcerative colitis, unspecified, without complications (principal) | CPT/HCPCS: 85025 ==

== ENCOUNTER → 2025-01-01 08:16 | Outpatient (BNVA) | payer MEDICARE, SELFPAY | PROVIDERS: PCP Nurse Practitioner; Visit Provider Nurse Practitioner | DX: I10 Essential (primary) hypertension (principal) | CPT/HCPCS: 85025 ==

== ENCOUNTER 2025-04-26 05:58 | Observation (INO) | payer MEDICARE, SELFPAY ==
[2025-04-26] VITALS (13 sets, daily range): BP systolic 102–130; BP diastolic 68–94; PULSE 57–138; RESP 15–18; TEMP 36.4–36.6; O2SAT 93–98; BMI 34.9
--- NOTE | 2025-04-26 06:01 | ECG_ITS ---
[employer] Test Date: 2025-04-26 Pat Name: Roly Adamson Department: Room: Gender: Male Dev Manager: : 1950 Requested By: Micki Gomez Order Number: [id number] Julia MD: Jose Angel Burris M.D. Measurements Intervals [place] Rate: 86 P: 0 AL: 0 QRS: 38 QRSD: 100 T: 44 QT: 337 QTc: 404 Interpretive Statements ATRIAL FIBRILLATION POSSIBLE RIGHT VENTRICULAR CONDUCTION DELAY [RSR (QR) IN V1/V2] Compared to ECG 05/28/2024 16:39:26 Sinus bradycardia no longer present Sinus arrhythmia no longer present Electronically Signed On 04-27-2025 12:00:39 CDT by Jose Angel Burris M.D. [email or web address]
--- NOTE | 2025-04-26 06:01 | XRR_ITS ---
PROCEDURE INFORMATION: Exam: XR Chest Exam date and time: 04/26/2025 6:07 AM Age: 75 years old Clinical indication: Other: Palpitations TECHNIQUE: Imaging protocol: Radiologic exam of the chest. Views: 1 view. COMPARISON: CT abdomen pelvis w con* [id number] 11/15/2024 5:43 PM FINDINGS: Lungs: Unremarkable. No consolidation. Pleural spaces: Unremarkable. No pleural effusion. No pneumothorax. Heart/Mediastinum: Unremarkable. No cardiomegaly. Bones/joints: Unremarkable. XR/XR chest 1V portable [id number] IMPRESSION: No acute findings.
--- OUTSIDE RECORDS SUMMARY | 2025-04-26 06:05 | XMS_ITS | Clinical Summary ---
[facility] Felicita Ut unty Address [address] [place] [address] Phone Care Team Providers Care Charter Pilot Name Role Phone Unavailable Primary Care Provider Unavailabl e Allergies No known active allergies Medications oxyCODONE-acetam inophen (Percocet) 5-325 mg tabletIndication s:Other partial intestinal obstruction Take 1 Tablet by mouth every 4 hours as needed for Pain, Moderate. Max Daily Amount: 6 Tablets 30 Tablet 11/25/2024 3:51 PM CDT 11/19/2024 Active pantoprazole (PROTONIX) 40 mg Tablet, Delayed Release (E.C.) Take 1 Tablet (40 mg) by mouth daily before breakfast. 30 Tablet 11/25/2024 3:51 PM CDT 11/26/2024 Active metoprolol succinate (TOPROL XL) 50 mg Extended Release 24 hour tablet Take 50 mg by mouth daily before breakfast. Active metoprolol tartrate (LOPRESSOR) 25 mg tablet Take 25 mg by mouth daily at bedtime. Active meloxicam (MOBIC) 7.5 mg tablet Take 7.5 mg by mouth daily. Active aspirin (ELSY CHEWABLE) 81 mg Tablet, Chewable Take 81 mg by mouth daily. Active Active Problems Problem Noted Date Diagnosed Date s/p redo ileocolic resection 11/19/2024 for Crohn 's disease 11/19/2024 Crohn's disease of colon with intestinal obstruc tion 11/18/2024 Bowel obstruction 11/16/2024 History of ulcerative colitis 11/16/2024 Intra-abdominal infection 11/16/2024 Encounters Date Type Department Care Team Description 04/09/2025 External Device Data STL ABSTRACTION Provider, Abstract 03/26/2025 External Device Data ST[facility] ABSTRACTION Provider, Abstract 03/12/2025 External Device Data ST[facility] ABSTRACTION Provider, Abstract 03/06/2025 External Device Data ST[facility] ABSTRACTION Provider, Abstract 03/05/2025 External Device Data STL ABSTRACTION Provider, Abstract from Last 3 Months Social History Tobacco Use Types Packs/Day Years Used Date Smoking Tobacco: Unknown Tobacco Cessation:Counseling Given: Not Answered Feeling Safe Answer Date Recorded Are you in a relationship wi th someone who hurts you emotionally and/or physically? No 11/17/2024 Food Insecurity Answer Date Recorded Patient needs follow up regardin 11/16/2024 Transportation Needs Answer Date Record ed Patient needs follow up regardin 11/16/2024 Utility Needs Answer Date Recorded Patient needs follow up regardin 11/16/2024 Sex and Gender Information Value Date Recorded Sex Assigned at Not on file Legal Sex Male 7:41 AM CDT Gender Identity Not on file Sexual Orientation Not on file Last Filed Vital Signs Vital Sign Reading Time Taken Comments Blood Pressure 119/77 01/16/2025 8:49 AM CDT Pulse 57 01/16/2025 8:49 AM CDT Temperature 37.2 C (99 F) 01/02/2025 8:59 AM CDT Respiratory Rate 16 11/25/2024 7:42 AM CDT Oxygen Saturation 96% 01/02/2025 8:59 AM CDT Inhaled Oxygen Concentration - - Weight 111.1 kg (245 lb) 01/16/2025 8:49 AM CDT Height 175.3 cm (5' 9 ) 01/16/2025 8:49 AM CDT Body Mass Index 36.18 01/16/2025 8:49 AM CDT Plan of Treatment Upcoming Encounters Date Type Department Care Team (Late st Contact Info) Description 08/05/2025 3:00 PM 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 Office Visit [facility] [place] [address] [facility] [address] [place] [address] Sara Elaine FNP [address] [facility] [address] [place] [address] Health Maintenance Due Date Last Done Comments DTAP/TDAP/TD VACCINES (1 - Tdap) 1971 FIT-DNA Q 3 years 1997 FIT/FOBT Q 1 year 1997 Flex Sig/CT Colonography Q 5 years 1997 PNEUMOCOCCAL VACCINE 50+ YEA RS (1 of 1 - PCV) 2002 ZOSTER VACCINE (1 of 2) 2002 INFLUENZA VACCINE (#1) 2025 04/25/2023, 2021 COVID-19 Vaccine ( - season) 2025 06/18/2021, 10/15/2020, 09/09/2020 RSV VACCINE (60+ or ) (1 - 1-dose 75+ series) 2027 COLORECTAL SCREENING 11/17/2034 11/17/2024, 11/18/19 25 Colorectal Cancer Screening 11/17/2034 Procedures Procedure Name Priority Date/Time Associated Diagnosis Comments COLONOSCOPY REPORT 11/17/2024 10 :39 AM CDT from Last 3 Months or Most Recently Relevant to Health Maintenance Results * COLONOSCOPY REPORT (11/17/2024 10:39 AM CDT) Narrative Procedure Note Alen Gibbs MD - 11/17/2024 10:39 AM CDT [facility] Patient Name: Roly Adamson Procedure Date: 11/17/2024 Date of : 1950 Admit Type: Inpatient Age: 74 Attending MD: Alen Gibbs MD, Procedure: Colonoscopy Indications: Abnormal CT of the GI tract with concern for anastomotic stricture. Providers: Alen Gibbs MD Referring MD: Medicines: Monitored Anesthesia Care Complications: No immediate complications. Procedure: Pre-Anesthesia Assessment: - Prior to the procedure, a History and Physical was performed, and patient medications and allergies were reviewed. The patient's tolerance of previous anesthesia was also reviewed. The risks and benefits of the procedure and the sedation options and risks were discussed with the patient. All questions were answered, and informed consent was obtained. Prior Anticoagulants: The patient has taken no anticoagulant or antiplatelet agents. ASA Grade Assessment: III - A patient with severe systemic disease. After reviewing the risks and benefits, the patient was deemed in satisfactory condition to undergo the procedure. After I obtained informed consent, the scope was passed under direct vision. Throughout the procedure, the patient's blood pressure, pulse, and oxygen saturations were monitored continuously. The Colonoscope was introduced through the anus and advanced to the ileocolonic anastomosis. The colonoscopy was performed without difficulty. The patient tolerated the procedure well. The quality of the bowel preparation was good. The ileocolonic anastomosis and the rachelle-terminal ileum were photographed. Estimated Blood Loss: Estimated blood loss was minimal. Findings: A benign-appearing, intrinsic moderate stenosis with inflammation and ulceration measuring 3 cm (in length) was found in the proximal transverse colon, just distal to the IC anastomosis. The stenosis was traversed. Passage of the colonoscope resulted in moderate mucosal disruption. There was evidence of a prior [id number] ileo-colonic anastomosis in the proximal transverse colon. This was patent and was characterized by ulceration. The anastomosis was traversed without dysphagia. The rachelle-terminal ileum appeared normal. Localized severe inflammation characterized by erythema, loss of vascularity and deep patchy ulcerations was found in the proximal transverse colon at the area adjacent to the anastomosis to the stricture located a few centimeters distal. Biopsies were taken with a cold forceps for histology. Normal mucosa was found in the rectum, in the sigmoid colon, in the descending colon and in the distal transverse colon. A 12 mm polyp was found in the rectum. The polyp was flat. The polyp was removed with a cold snare. Resection and retrieval were complete. Impression: - Stricture in the proximal transverse colon, just distal to the IC anastomosis, dilated with passage of the colonoscope. - Patent [id number] ileo-colonic anastomosis, characterized by ulceration. - The examined portion of the ileum was normal. - Localized severe inflammation was found in the proximal transverse colon, likely secondary to Crohn's disease with colonic involvement. Biopsied. - Normal mucosa in the rectum, in the sigmoid colon, in the descending colon and in the distal transverse colon. - One 12 mm polyp in the rectum, removed with a cold snare. Resected and retrieved. Recommendation: - Clear liquid diet. - Await pathology results - Surgery following. Will likely require surgical resection and re-anastomosis. Alen Gibbs MD 11/17/2024 10:39:03 AM Number of Addenda: 0 Note Initiated On: 11/17/2024 10:03 AM Scope Withdrawal Time 0 hours 13 minutes 20 seconds Scope In: 10:10:53 AM Scope Out: 10:27:33 AM [address] [place], [place] Alen Gibbs MD GI PROCEDURE ORDERA BLES Final Result from Last 3 Months or Most Recently Relevant to Health Maintenance Insurance [facility] RX [facility] Medicare Part D Advance Directives For more information, please contact: [phone] * Full Code (Latest Code Status on File) Date Activated Date Inactivated Comments 11/19/2024 7:40 PM 11/25/2024 7:06 PM * Full Code Date Activated Date Inactivated Comments 11/16/2024 2:16 AM 11/19/2024 7:40 PM
--- NOTE | 2025-04-26 06:13 | W.ED.ARRPALP ---
HPI - Arrhythmia/Palpitations General: Chief Complaint: Arrhythmia/Palpitations Stated Complaint: heart fluttering Time Seen by Provider: 04/26/25 06:02 History of Present Illness: 75-year-old man with a history of coronary artery disease status post stents and hypertension who presents to the emergency room with palpitations. He says he was feeling some flutters/palpitations and checked his phone heart monitor which said he might have atrial fibrillation. On presentation he is in atrial fibrillation with a rate of 110. Reading Dr. Espino's note from November this year he had stated the patient does have paroxysmal atrial fibrillation but the patient says he does not know of an official diagnosis of this. From what I can gather he has had a history of palpitations but has never officially been diagnosed per the patient. He is having no chest pain. No shortness of breath. Related Data Home Medications ?Medication ?Instructions ?Recorded ?Confirmed aspirin 81 mg tablet,delayed 81 mg PO DAILY 06/02/24 12/27/24 release (Adult Low Dose Aspirin) Previous Rx's ?Medication ?Instructions ?Recorded cpap supplies #1 ea 11/26/22 nitroglycerin 0.4 mg sublingual 0.4 mg sublingual Q5M PRN chest 06/06/24 tablet pain #20 tabs metoprolol succinate 50 mg 50 mg .Route .take as directed 11/29/24 tablet,extended release 24 hr #135 tabs meloxicam 15 mg tablet See Rx Instructions .Route 12/28/24 .COMPLEX #30 tabs Allergies Allergy/AdvReac Type Severity Reaction Status Date / Time No Known Allergies Allergy Verified 12/12/24 08:21 Review of Systems Narrative: Constitutional symptoms: Negative except as documented in HPI. Skin symptoms: Negative except as documented in HPI. Eye symptoms: Negative except as documented in HPI. ENMT symptoms: Negative except as documented in HPI. Respiratory symptoms: Negative except as documented in HPI. Cardiovascular symptoms: Negative except as documented in HPI. Gastrointestinal symptoms: Negative except as documented in HPI. Genitourinary symptoms: Negative except as documented in HPI. Musculoskeletal symptoms: Negative except as documented in HPI. Neurologic symptoms: Negative except as documented in HPI. Psychiatric symptoms: Negative except as documented in HPI. Endocrine symptoms: Negative except as documented in HPI. PFS ED PFSH: Medical History (Updated 04/26/25 @ 07:39 by Micki Bradshaw MD) Ulcerative colitis Contact dermatitis Adrenal mass Presence of drug-eluting stent in left circumflex coronary artery stent X2 in 2017, overlapping stent in December 2017. HTN (hypertension) Cardiovascular disease with arteriosclerosis Surgical History History of partial colectomy due to benign mass History of heart artery stent He has two stents and the last one put in was 2017- in [place] History of hemicolectomy Family History Brother Myocardial infarction CAD (coronary artery disease) Mother , AT 81 Cancer LUNG, BREAST Sister Cancer Grandfather Cancer Father , AT AGE 57 Kyphosis deformity of spine Denies family history of Diabetes Clotting disorder Dementia Hyperlipidemia Psychiatric illness Chronic kidney disease (CKD) Suicide Anesthesia complication Bleeding disorder Family history of premature coronary artery disease Lung disease Hypertension Stroke Social History Smoking and tobacco/nicotine status: former use of tobacco/nicotine Quit status (tobacco/nicotine): has quit using Year quit tobacco: 2009 Alcohol intake: current Alcohol intake frequency: few times a week Substance/Drug Use: never Marital status: Current occupational status: employed Current occupation: [employer] Physical Exam Narrative: EXAM NARRATIVE: General: Alert, no acute distress. Skin: Warm, dry. Head: Normocephalic, atraumatic. Neck: Supple, trachea midline. Eye: Extraocular movements are intact. Ears, nose, mouth and throat: mucosa moist. Cardiovascular: Irregular, tachycardic, Normal peripheral perfusion. Respiratory: Lungs are clear to auscultation, respirations are non-labored, breath sounds are equal, Symmetrical chest wall expansion. Gastrointestinal: Soft, Nontender, Non distended Musculoskeletal: Normal ROM, no deformity. Neurological: Alert and oriented, No focal neurological deficit observed. Psychiatric: Cooperative, appropriate mood & affect. Course Vital Signs: Vital signs: Vital Signs Temperature 98 F 04/26/25 06:08 Pulse Rate 138 H 04/26/25 06:14 Respiratory Rate 18 04/26/25 06:08 Blood Pressure 111/87 04/26/25 06:14 Pulse Oximetry 94 04/26/25 06:14 Oxygen Delivery Me thod Room Air 04/26/25 06:14 MDM - Arrhythmia/Palpitations Medical Decision Making Medical decision making: Differential diagnosis including but not limited to and based on the above HPI, review of systems and physical exam: for patient with palpitations: atrial fibrillation with rapid ventricular response. ventricular tachycardia. sinus tachycardia. PVCs. also concern for underlying issues causing tachycardia. Infection, electrolyte abnormalities and thyroid issues. Orders placed to evaluate differential diagnosis based on the above differential, HPI and physical exam EKG: Time 6:03 AM. Rate 86. Atrial fibrillation with controlled rate, No ST-T changes, no ectopy, This was reviewed and interpreted by myself the ER physician at 6:08 AM Chest x-ray: No acute process. No infiltrate. No pneumothorax. This was reviewed and interpreted by myself the emergency room physician. I also reviewed the radiology report. Cardiac monitoring: Patient has bounced back and forth between A-fib with a controlled rate in A-fib with RVR. Rates has been in the 140s fairly consistently and then back down to the 70s and 80s. Lab Review: Laboratory results were reviewed and interpreted by myself the emergency room physician. No leukocytosis. No anemia. Slight elevation in his BUN over baseline. Pressures a little bit soft so that he may be a bit dehydrated so some fluids are being given. TSH normal. Troponin negative. proBNP not significantly elevated I reviewed the patient's medical record. Reexamination: Patient remained stable. No increased work of breathing. No altered mental status. No focal motor deficits. Patient remains in atrial fibrillation Consultation: I spoke with Dr. Amaral who is on-call for the hospitalist service who agrees to admission. Assessment and plan: Atrial fibrillation with rapid ventricular response Dehydration ?Amiodarone bolus and an IV normal saline bolus - Discharged home - Discussed plan with patient. Answered any questions. - Evaluation and treatment of this problem were appropriate in the emergency setting. Lab Data 04/26/25 06:12 04/26/25 06:12 Radiology Impressions Chest X-Ray 04/26/25 06:01 IMPRESSION: No acute findings. Laboratory Results WBC 8.71 10^3/uL (3.29-11.43) 04/26/25 06:12 RBC 5.49 10^6/uL (3.85-5.65) 04/26/25 06:12 Hgb 16.70 g/dL (11.27-16.99) 04/26/25 06:12 Hct 50.4 % (37-53) 04/26/25 06:12 MCV 91.8 fl (82-101) 04/26/25 06:12 MCH 30.4 pg (27-33) 04/26/25 06:12 MCHC 33.1 g/dL (30-55) 04/26/25 06:12 RDW 15.9 % (12.1-15.1) H 04/26/25 06:12 Plt Count 319 10^3/cmm (157-399) 04/26/25 06:12 MPV 10.4 fL (7.4-10.4) 04/26/25 06:12 Neut % (Auto) 51.4 % 04/26/25 06:12 Lymph % (Auto) 24.6 % 04/26/25 06:12 [place] % (Auto) 15.3 % 04/26/25 06:12 Eos % (Auto) 6.1 % 04/26/25 06:12 Baso % (Auto) 1.6 % 04/26/25 06:12 Neut # (Auto) 4.48 10^3/uL (1.8-7.7) 04/26/25 06:12 Lymph # (Auto) 2.1 10^3/uL (0.8-4.8) 04/26/25 06:12 [place] # (Auto) 1.3 10^3/uL (0.2-0.9) H 04/26/25 06:12 Eos # (Auto) 0.5 10^3/uL (0.0-0.8) 04/26/25 06:12 Baso # (Auto) 0.1 10^3/uL (0.0-0.1) 04/26/25 06:12 Nucleated RBC % (auto) 0 % 04/26/25 06:12 Nucleated RBCs # 0.0 /100WBC 04/26/25 06:12 Sodium 141 mmol/L (136-145) 04/26/25 06:12 Potassium 4.3 mmol/L (3.5-5.1) 04/26/25 06:12 Chloride 107 mmol/L (98-107) 04/26/25 06:12 Carbon Dioxide 21 mmol/L (22-29) L 04/26/25 06:12 Anion Gap 17.3 (5-19) 04/26/25 06:12 BUN 24 mg/dL (8-23) H 04/26/25 06:12 Creatinine 0.5 mg/dL (0.7-1.2) L 04/26/25 06:12 GFR Calculation Not Reportable 04/26/25 06:12 Glucose 109 mg/dL (65-115) 04/26/25 06:12 Calculated Osmolality 297 mOsm/kg (285-295) H 04/26/25 06:12 Calcium 9.3 mg/dL (8.5-10.5) 04/26/25 06:12 Magnesium 2.1 mg/dL (1.7-2.3) 04/26/25 06:12 Total Bilirubin 0.2 mg/dL (0.15-1.2) 04/26/25 06:12 AST 16 U/L (0-40) 04/26/25 06:12 ALT 16 U/L (0-41) 04/26/25 06:12 Alkaline Phosphatase 61 U/L (40-130) 04/26/25 06:12 Troponin T Baseline 11 ng/L (0-15) 04/26/25 06:12 NT-Pro-B Natriuret Pep 155 pg/mL (0-125) H 04/26/25 06:12 Total Protein 6.3 g/dL (6.6-8.7) L 04/26/25 06:12 Albumin 4.0 g/dL (3.5-5.2) 04/26/25 06:12 Globulin 2.3 g/dL (1.3-4.6) 04/26/25 06:12 TSH 2.26 uIU/mL (0.27-4.20) 04/26/25 06:12 All radiology interpretation(s) finalized by discharge Discharge Plan Discharge Patient Disposition: Placed in Observation Clinical Impression: Atrial fibrillation with rapid ventricular response Coding Level of Care Code ED Building Coordinator for Guera Fuentes
[2025-04-26 06:35] LABS: Hematocrit 50.4 % (37-53); Hemoglobin 16.70 g/dL (11.27-16.99); Mean Corpuscular HGB Conc 33.1 g/dL (30-55); Mean Corpuscular Hemoglobin 30.4 pg (27-33); Mean Corpuscular Volume 91.8 fl (82-101); Nucleated Red Blood Cells % 0 %; Platelet Count 319 10^3/cmm (157-399); Red Blood Count 5.49 10^6/uL (3.85-5.65); White Blood Count 8.71 10^3/uL (3.29-11.43)
[2025-04-26 06:47] LABS: Troponin(5th) Baseline 11 ng/L (0-15)
[2025-04-26 06:54] LABS: Alanine Aminotransferase 16 U/L (0-41); Albumin Level 4.0 g/dL (3.5-5.2); Alkaline Phosphatase 61 U/L (40-130); Aspartate Amino Transferase 16 U/L (0-40); Blood Urea Nitrogen 24 mg/dL (8-23); Calcium 9.3 mg/dL (8.5-10.5); Carbon Dioxide 21 mmol/L (22-29); Chloride 107 mmol/L (98-107); Creatinine Clr Calc Pharmacy 96.2781; Globulin 2.3 g/dL (1.3-4.6); Glucose 109 mg/dL (65-115); Magnesium 2.1 mg/dL (1.7-2.3); NT Pro B Type Natriuretic Pept 155 pg/mL (0-125); Osmolality Calculated 297 mOsm/kg (285-295); Sodium 141 mmol/L (136-145); Thyroid Stimulating Hormone 2.26 uIU/mL (0.27-4.20); Total Protein 6.3 g/dL (6.6-8.7)
[2025-04-26 07:05] LABS: Anion Gap 17.3 (5-19); Potassium 4.3 mmol/L (3.5-5.1)
[2025-04-26] MEDS: amiodarone 150 MG/100 ML PREMIX 400 MG IV (07:56)
--- NOTE | 2025-04-26 08:01 | ECG_ITS ---
[facility] Test Date: 2025-04-26 Pat Name: Roly Adamson Department: Room: EDIP Gender: Male Marketing Assistant: : 1950 Requested By: Micki Gomez Order Number: [id number] Dumont MD: Jose Angel Burris M.D. Measurements Intervals [place] Rate: 68 P: 0 MN: 0 QRS: 26 QRSD: 113 T: 44 QT: 399 QTc: 425 Interpretive Statements ATRIAL FIBRILLATION POSSIBLE RIGHT VENTRICULAR CONDUCTION DELAY [RSR (QR) IN V1/V2] POSSIBLE LATERAL MYOCARDIAL INFARCTION , OF INDETERMINATE AGE [30 ms Q WAVE IN I/aVL/V5/V6] Compared to ECG 04/26/2025 06:03:40 Myocardial infarct finding now present Electronically Signed On 04-27-2025 12:08:50 CDT by Jose Angel Burris M.D. [id number]
[2025-04-26 08:58] LABS: Troponin 5 2HR 13.62 ng/L (0-15); Troponin 5 2HR Delta 2.62 ABS# (0-10)
--- NOTE | 2025-04-26 11:26 | USCV_ITS ---
Roly Adamson Age: 75 Gender: M : 1950 Exam Date: 04/26/2025 15:42 Ordering Phys: Rubia Amaral MD Technologist: Patrick Sales [place] [facility] [place] new afib BP: 121 / 85 HR: 70 Rhythm: Atrial fibrillation Technical Quality: Adequate MEASUREMENTS (Male / Female) Normal Values 2D ECHO LV Diastolic Diameter PLAX 4.0 cm 4.2 - 5.9 / 3.9 - 5.3 cm IVS Diastolic Thickness 1.2 cm 0.6 - 1.0 / 0.6 - 0.9 cm IVS Systolic Thickness 1.7 cm LVPW Diastolic Thickness 1.0 cm 0.6 - 1.0 / 0.6 - 0.9 cm LVPW Systolic Thickness 2.3 cm LVOT Diameter 2.0 cm LV Ejection Fraction 2D Teich 55.4 % LV Ejection Fraction MOD 4C 58.2 % LV Ejection Fraction MOD 2C 55.8 % LV Ejection Fraction 2C AL 54.4 % LA Diameter 3.7 cm RA Systolic Volume 4C AL 46.6 ml RA Systolic Volume 4C MOD 45.9 ml LA Sys Volume AL 68.0 cm cubed LA Sys Volume Index AL 29.9 cm cubed/m squared Aorta at Sinotubular Diameter 2.9 cm M-MODE LA Ao Ratio MM 1.4 AV Cusp Separation MM 2.2 cm DOPPLER AV Peak Velocity 123.3 cm/s LVOT Peak Velocity 111.0 cm/s AV Area Cont Eq vti 2.8 cm squared AV Area Cont Eq pk 2.9 cm squared MV Peak Velocity 134.0 cm/s MV Area PHT 3.3 cm squared Mitral E to A Ratio 0.0 PV Peak Velocity 96.0 cm/s RV Ejection Time 0.2 s FINDINGS Left Ventricle Mild left ventricular septal hypertrophy. Normal left ventricular cavity size. Normal left ventricular systolic function. Left ventricular ejection fraction is 58%. Indeterminate diastolic function due to atrial fibrillation. Right Ventricle Normal right ventricular size and systolic function. Normal right ventricular systolic pressure. RVSP 39 mmHg. Right Atrium Normal right atrial size. Left Atrium Normal left atrial size. IA Septum Normal appearance of interatrial septum. Mitral Valve Severe mitral annular calcification. Mild mitral valve regurgitation. No mitral valve stenosis. Aortic Valve No aortic valve stenosis. Trace aortic valve regurgitation. Tricuspid Valve Trace tricuspid valve regurgitation. Pulmonic Valve No pulmonary valve stenosis. No pulmonary valve regurgitation. Pericardium No pericardial effusion. Aorta Normal size aortic root and proximal ascending aorta. IVC Inferior vena cava not visualized. CONCLUSIONS 1. Mild left ventricular septal hypertrophy. Normal left ventricular cavity size. Normal left ventricular systolic function. Left ventricular ejection fraction is 58%. Indeterminate diastolic function due to atrial fibrillation. 2. No significant valvular dysfunction. 3. Mild mitral valve regurgitation. Morales Anne MD, FACC (Electronically Signed) Final Date: 26 April 2025 22:57 S
--- NOTE | 2025-04-26 12:01 | ECG_ITS ---
[facility] Date: 2025-04-26 Pat Name: Roly Adamson Department: Room: EDIP Gender: Male Lvn Lpn: : 1950 Requested By: Micki Gomez Order Number: [id number] Julia MD: Jose Angel Burris M.D. Measurements Intervals [place] Rate: 57 P: 0 [place]: 0 QRS: 23 QRSD: 103 T: 35 QT: 400 QTc: 390 Interpretive Statements ATRIAL FIBRILLATION WITH SLOW VENTRICULAR RESPONSE POSSIBLE RIGHT VENTRICULAR CONDUCTION DELAY [RSR (QR) IN V1/V2] ST ELEVATION, PROBABLY EARLY REPOLARIZATION [ST ELEVATION WITH NORMALLY INFLECTED T-WAVE] Compared to ECG 04/26/2025 08:39:58 ST (T wave) deviation now present Early repolarization now present Myocardial infarct finding no longer present Electronically Signed On 04-27-2025 12:07:58 CDT by Jose Angel Burris M.D. [email or web address]
[2025-04-26 13:06] LABS: Troponin 5 6HR 11.86 ng/L (0-15); Troponin 5 6HR Delta 0.86 ng/L (0-12)
--- NOTE | 2025-04-26 15:27 | P.HP_ITS ---
Documented by User: PATRICK Collier STDJONELLE 04/26/25 16:02 Providers/Chief Complaint 2 Admitting Physician: Rubia Amaral MD Primary Care Provider: LEANNE Palacios Chief Complaint: heart fluttering History of Present Illness Roly Adamson is a 75 year old male with history of hypertension and angina post x2 stents presenting to the ED with palpitations. He woke up around 0430 and was able to check his phone heart monitor which said he may have atrial fibrillation. He reports his heart rate was 151 bpm. He took his 50mg metoprolol succinate and drove to the ER by himself. He has had a history of palpitations before but never of this duration and never with tachycardia. He has no chest pain nor shortness of breath. He does not have a history of myocardial infarction, stroke, TIA, nor diabetes. He previously had HTN, but he has been able to control this with only weight loss losing 110lbs. Review of Systems 2 Const: Denies: fever(s), chills or night sweats Card: Denies: chest pain or edema Resp: Denies: dyspnea GI: Denies: nausea or vomiting Skin/Breast: Denies: rash Neuro: Denies: headache(s) Medications/Allergies Home Medications ?Medication ?Instructions ?Recorded ?Confirmed ?Last Taken ?Type cpap supplies #1 ea 11/26/22 04/26/25 Unkn own Rx nitroglycerin 0.4 mg sublingual 0.4 mg sublingual Q5M PRN chest 06/06/24 04/26/25 Unknown Rx tablet pain #20 tabs metoprolol succinate 50 mg 50 mg .Route .take as direc az 11/29/24 04/26/25 04/26/25 07:00 Rx tablet,extended release 24 hr #135 tabs meloxicam 15 mg tablet See Rx Instructions .Route 0 12/28/24 04/26/25 04/21/25 Rx .COMPLEX #30 tabs Allergies Allergy/AdvReac Type Severity Reaction Status Date / Time No Known Allergies Allergy Verified 12/12/24 08:21 PFSH Acute 2 PFSH: Medical History Ulcerative colitis Contact dermatitis Adrenal mass Presence of drug-eluting stent in left circumflex coronary artery stent X2 in 2016, overlapping stent in December 2017. HTN (hypertension) Cardiovascular disease with arteriosclerosis Surgical History History of partial colectomy due to benign mass History of heart artery stent He has two stents and the last one put in was 2017- in [place] History of hemicolectomy Family History Brother Myocardial infarction CAD (coronary artery disease) Mother , AT 81 Cancer LUNG, BREAST Sister Cancer Grandfather Cancer Father , AT AGE 57 Kyphosis deformity of spine Denies family history of Diabetes Clotting disorder Dementia Hyperlipidemia Psychiatric illness Chronic kidney disease (CKD) Suicide Anesthesia complication Bleeding disorder Family history of premature coronary artery disease Lung disease Hypertension Stroke Social History Smoking and tobacco/nicotine status: former use of tobacco/nicotine Quit status (tobacco/nicotine): has quit using Year quit tobacco: 2009 Alcohol intake: current Alcohol intake frequency: few times a week Substance/Drug Use: never Marital status: Current occupational status: employed Current occupation: [employer] Vitals/I&O/Wt Last Vital Signs Temp 97.6 F 04/26/25 13:01 Pulse 57 L 04/26/25 13:01 Resp 15 04/26/25 13:01 BP 121/85 04/26/25 13:01 Pulse Ox 96 04/26/25 13:01 O2 Del Method Room Air 04/26/25 13:25 04/26/25 04/26/25 04/26/25 06:59 14:59 22:59 Intake Total 0 / 0 1100 / 1100 Balance 0 / 0 1100 / 1100 Weight last 48 hrs Weight 104.326 kg Physical Exam 2 Const: COMMON NORMALS: no acute distress, patient oriented x3 and alert Chest: COMMONS NORMALS: normal inspection of the chest Resp: COMMON NORMALS: normal respiratory effort and clear to auscultation bilaterally Cardio: COMMON NORMALS: regular rate, S1 normal heart sound present, S2 normal heart sound present, No murmurs present (Cardio) and Peripheral pulses 2+ throughout; negative for regular rhythm (irregularly irregular rhythm) GI: COMMON NORMALS: Normal to inspection, nondistended, normoactive bowel sounds present and Soft to palpation Data 04/26/25 06:12 04/26/25 06:12 A&P Assessment and plan 1. Atrial fibrillation: Plan: 1. Atrial Fibrillation Patient is currently in rate controlled atrial fibrillation. Plan to perform echocardiogram to assess for underlying valvular disease and to note current EF. Plan is to monitor overnight and discuss anticoagulation after echocardiogram. By the [id number] criteria, patient would be recommended anticoagulation if his echocardiogram shows significantly reduced ejection fraction. PDMP PDMP Reviewed: Not Reviewed Attestations 2 Medical Necessity Statement*: monitoring for atrial fibrillation Coding Level of Care Code Acute Code for g Fwd Diagnoses Atrial fibrillation I48.91 Documented by User: Rubia Amaral MD 04/26/25 17:41 Providers/Chief Complaint 2 Chief Complaint: heart fluttering Medications/Allergies Home Medications ?Medication ?Instructions ?Recorded ?Confirmed ?Last Taken ?Type cpap supplies #1 ea 11/26/22 04/26/25 Unkn own Rx nitroglycerin 0.4 mg sublingual 0.4 mg sublingual Q5M PRN chest 06/06/24 04/26/25 Unknown Rx tablet pain #20 tabs metoprolol succinate 50 mg 50 mg .Route .take as direc az 11/29/24 04/26/25 04/26/25 07:00 Rx tablet,extended release 24 hr #135 tabs meloxicam 15 mg tablet See Rx Instructions .Route 0 12/28/24 04/26/25 04/21/25 Rx .COMPLEX #30 tabs Allergies Allergy/AdvReac Type Severity Reaction Status Date / Time No Known Allergies Allergy Verified 12/12/24 08:21 PFSH Acute 2 PFSH: Medical History Ulcerative colitis Contact dermatitis Adrenal mass Presence of drug-eluting stent in left circumflex coronary artery stent X2 in 2016, overlapping stent in December 2017. HTN (hypertension) Cardiovascular disease with arteriosclerosis Surgical History History of partial colectomy due to benign mass History of heart artery stent He has two stents and the last one put in was 2017- in [place] History of hemicolectomy Family History Brother Myocardial infarction CAD (coronary artery disease) Mother , AT 81 Cancer LUNG, BREAST Sister Cancer Grandfather Cancer Father , AT AGE 57 Kyphosis deformity of spine Denies family history of Diabetes Clotting disorder Dementia Hyperlipidemia Psychiatric illness Chronic kidney disease (CKD) Suicide Anesthesia complication Bleeding disorder Family history of premature coronary artery disease Lung disease Hypertension Stroke Social History Smoking and tobacco/nicotine status: former use of tobacco/nicotine Quit status (tobacco/nicotine): has quit using Year quit tobacco: 2009 Alcohol intake: current Alcohol intake frequency: few times a week Substance/Drug Use: never Marital status: Current occupational status: employed Current occupation: [employer] 04/26/25 06:12 04/26/25 06:12 A&P Assessment and plan 1. Atrial fibrillation: Plan: 1. Atrial Fibrillation Patient is currently in rate controlled atrial fibrillation. Plan to perform echocardiogram to assess for underlying valvular disease and to note current EF. Plan is to monitor overnight and discuss anticoagulation after echocardiogram. By the [id number] criteria, patient would be recommended anticoagulation if his echocardiogram shows signs of heart failure. Attending addendum: Patient presented with A fib with RVR This morning to ED with HR 150s. He has had intermittent palpitations over the years but this morning it was sustained. He received amiodarone 150mg bolus in the ER following which he has been in rate controlled A fib .Currently HR is between 60-100. [id number] score of 2 at this time, (prior [place],age [age]). Pending echo to assess for any valvular abnormalities, assess for systolic and/or diastolic dysfunction. Continue metoprolol 50mg Am and 25mg Pm as he takes at home. Monitor on telemtery closely. Initiation of anticoagulation needs to be offset against risk of bleeding. He has a known h/o crohn's disease, not on any current treatment, recently declined biologicals. He has had partial colectomy x 2 for Crohn's flares. Will check FOBT today. PDMP PDMP Reviewed: Not Reviewed Coding Level of Care Code Acute Code for Chg Fwd Diagnoses Atrial fibrillation I48.91
[2025-04-27] VITALS: BP 122/75; PULSE 64; RESP 19; TEMP 36.9; O2SAT 95
[2025-04-27 04:00] VITALS: BP 112/78; PULSE 65; RESP 19; TEMP 36.6; O2SAT 96
[2025-04-27 05:09] LABS: Hematocrit 49.3 % (37-53); Hemoglobin 16.10 g/dL (11.27-16.99); Mean Corpuscular HGB Conc 32.7 g/dL (30-55); Mean Corpuscular Hemoglobin 30.0 pg (27-33); Mean Corpuscular Volume 92.0 fl (82-101); Nucleated Red Blood Cells % 0 %; Platelet Count 321 10^3/cmm (157-399); Red Blood Count 5.36 10^6/uL (3.85-5.65); White Blood Count 8.56 10^3/uL (3.29-11.43)
[2025-04-27 05:39] LABS: Alanine Aminotransferase 14 U/L (0-41); Albumin Level 3.4 g/dL (3.5-5.2); Alkaline Phosphatase 48 U/L (40-130); Anion Gap 14.2 (5-19); Aspartate Amino Transferase 13 U/L (0-40); Blood Urea Nitrogen 15 mg/dL (8-23); Calcium 8.9 mg/dL (8.5-10.5); Carbon Dioxide 23 mmol/L (22-29); Chloride 105 mmol/L (98-107); Creatinine Clr Calc Pharmacy 96.1939; Globulin 2.6 g/dL (1.3-4.6); Glucose 94 mg/dL (65-115); Osmolality Calculated 287 mOsm/kg (285-295); Potassium 4.2 mmol/L (3.5-5.1); Sodium 138 mmol/L (136-145); Total Protein 6.0 g/dL (6.6-8.7)
[2025-04-27 07:24] VITALS: BP 123/81; PULSE 67; RESP 17; TEMP 36.9; O2SAT 94
[2025-04-27 08:00] VITALS: BP 136/76; PULSE 74; RESP 20; TEMP 36.4
--- NOTE | 2025-04-27 11:33 | PC.CHAP ---
Pastoral Care Encounter/Spiritual Assessment Type of Contact [] Declined clinical care manager visit [] Patient/Family/Request visit [] Outpatient visit [] Follow-up visit [] Physician referral [] Code/Alert [X] Routine visit [] Staff referral [] Actively dying [] Patient sleeping [] Family support [] [] Out of room [] Palliative care [] [] Receiving care in room [] Pre-surgical visit [] Trauma [] Long length of stay [] ICU visit [] Other: Relational/Emotional Strength [X] Patient feels connected with others/family/visitors/staff [] Distress [] Loneliness/isolation [] Abandonment Spirituality of Patient [X] Person of Brisa [X] Attends Buddhist of their Brisa [X] Believes in Prayer [X] Reads Bible or Advent materials [] There are Spiritual issues to be addressed [employer] Interventions [X] Prayer [X] Active listening [X] Non-anxious presence [] Spiritual/emotional support [] Crisis/trauma care [] Spiritual counseling [] Bereavement support [] Provided bereavement packet [] Provided Bible/devotional materials [] Provided toy/stuffed animal, coloring book to patient or family member [] Provided Communion [] Anointing/[place] [] Salvation [] Completed spiritual assessment [] Other: Impact on Illness or Injury [] Angry [] Fearful [] Anxious [] Often cries [] Exhaustion [] Unable to work [] Unable to attend yazidism [] Unable to walk/stand [] Unable to read [] Unable to drive [] Unable to eat/drink [] Unable to sleep [] Unable to be with family [] Patient intubated [] Other: Summary 30.Min Time spent with patient
[2025-04-27 11:50] VITALS: BP 136/76; PULSE 74; RESP 20; TEMP 36.4; O2SAT 94
--- NOTE | 2025-04-27 11:58 | PM.DCS ---
Discharge Providers Date of Admission: 04/26/25 07:48 Date of Discharge: April 27, 2025 Attending Provider at Admission: Rubia Amaral MD Attending Provider at Discharge: Missy Ochoa MD Consults: [facility] consult with Dr Anne, primary cardiogy is Dr Orellana with APPIOTMENT ON05/27/2025 Primary Care Provider: LEANNE Palacios Diagnoses at Discharge Discharge Diagnosis 1. Atrial fibrillation: Reason for Visit Reason for Visit: heart fluttering Hospital Course Hospital Course Roly Adamson is a 75 year old male with history of hypertension and angina post x2 stents presenting to the ED with palpitations. He woke up around 0430 and was able to check his phone heart monitor which said he may have atrial fibrillation. He reports his heart rate was 151 bpm. He took his 50mg metoprolol succinate and drove to the ER by himself. He has had a history of palpitations before but never of this duration and never with tachycardia. He has no chest pain nor shortness of breath. TODAY he is rate controlled on metoprol He does not have a history of myocardial infarction, stroke, TIA, nor diabetes. He previously had HTN, but he has been able to control this with only weight loss losing 110lbs. CHADSCORE IS >2 no sign of bleed and case discussed. i placed patient on eliquis 5mg po bid .Patient in stable condition. patient to follow up with his cardiogy on 05/27/2025 Physical Exam Narrative: Patient is doing well sitting up in chair with cheerful disposition Patient is hemodynamically stable and very happy and eager to go home Patient tells me he had no bleeding problem and does have Crohn's disease but no bleeding whatsoever. Upon review hemoglobin is 16 today. No abdominal pain no other issues. Patient came in with atrial fibrillation now with controlled A-fib on metoprolol. No chest pains HEENT normocephalic atraumatic neck neck is supple cardiovascular heart rate is regular lungs are pretty much clear abdomen soft nontender nondistended unremarkable extremities are intact no edema has good pulses neurology has no focality lab studies lab studies reviewed and noted. Discharge Data Studies Completed and Pending Completed Studies During Hospitalization Category Date Time Status XR chest 1V portable [id number] Stat Exams 04/26/25 06:01 Completed CV. echo complete* [id number] Routine Ultrasound 04/26/25 11:26 Completed Radiology Impressions Chest X-Ray 04/26/25 06:01 IMPRESSION: No acute findings. Laboratory Results WBC 8.56 10^3/uL (3.29-11.43) 04/27/25 04:36 RBC 5.36 10^6/uL (3.85-5.65) 04/27/25 04:36 Hgb 16.10 g/dL (11.27-16.99) 04/27/25 04:36 Hct 49.3 % (37-53) 04/27/25 04:36 MCV 92.0 fl (82-101) 04/27/25 04:36 MCH 30.0 pg (27-33) 04/27/25 04:36 MCHC 32.7 g/dL (30-55) 04/27/25 04:36 RDW 15.6 % (12.1-15.1) H 04/27/25 04:36 Plt Count 321 10^3/cmm (157-399) 04/27/25 04:36 MPV 10.8 fL (7.4-10.4) H 04/27/25 04:36 Neut % (Auto) 55.5 % 04/27/25 04:36 Lymph % (Auto) 24.6 % 04/27/25 04:36 Mcculloch % (Auto) 12.0 % 04/27/25 04:36 Eos % (Auto) 5.8 % 04/27/25 04:36 Baso % (Auto) 1.4 % 04/27/25 04:36 Neut # (Auto) 4.74 10^3/uL (1.8-7.7) 04/27/25 04:36 Lymph # (Auto) 2.1 10^3/uL (0.8-4.8) 04/27/25 04:36 Mcculloch # (Auto) 1.0 10^3/uL (0.2-0.9) H 04/27/25 04:36 Eos # (Auto) 0.5 10^3/uL (0.0-0.8) 04/27/25 04:36 Baso # (Auto) 0.1 10^3/uL (0.0-0.1) 04/27/25 04:36 Nucleated RBC % (auto) 0 % 04/27/25 04:36 Nucleated RBCs # 0.0 /100WBC 04/27/25 04:36 Sodium 138 mmol/L (136-145) 04/27/25 04:36 Potassium 4.2 mmol/L (3.5-5.1) 04/27/25 04:36 Chloride 105 mmol/L (98-107) 04/27/25 04:36 Carbon Dioxide 23 mmol/L (22-29) 04/27/25 04:36 Anion Gap 14.2 (5-19) 04/27/25 04:36 BUN 15 mg/dL (8-23) 04/27/25 04:36 Creatinine 0.6 mg/dL (0.7-1.2) L 04/27/25 04:36 GFR Calculation Not Reportable 04/27/25 04:36 Glucose 94 mg/dL (65-115) 04/27/25 04:36 Calculated Osmolality 287 mOsm/kg (285-295) 04/27/25 04:36 Calcium 8.9 mg/dL (8.5-10.5) 04/27/25 04:36 Magnesium 2.1 mg/dL (1.7-2.3) 04/26/25 06:12 Total Bilirubin 0.5 mg/dL (0.15-1.2) 04/27/25 04:36 AST 13 U/L (0-40) 04/27/25 04:36 ALT 14 U/L (0-41) 04/27/25 04:36 Alkaline Phosphatase 48 U/L (40-130) 04/27/25 04:36 Troponin T Baseline 11 ng/L (0-15) 04/26/25 06:12 Troponin T 120 Minute 13.62 ng/L (0-15) 04/26/25 08:32 Delta Troponin T 2.62 ABS# (0-10) 04/26/25 08:32 Troponin T Hi Sens 6Hr 11.86 ng/L (0-15) 04/26/25 12:35 Troponin T Hi Sens 6Hr Delta 0.86 ng/L (0-12) 04/26/25 12:35 NT-Pro-B Natriuret Pep 155 pg/mL (0-125) H 04/26/25 06:12 Total Protein 6.0 g/dL (6.6-8.7) L 04/27/25 04:36 Albumin 3.4 g/dL (3.5-5.2) L 04/27/25 04:36 Globulin 2.6 g/dL (1.3-4.6) 04/27/25 04:36 TSH 2.26 uIU/mL (0.27-4.20) 04/26/25 06:12 Vitals Last Vital Signs Temp 97.6 F 04/27/25 11:50 Pulse 74 04/27/25 11:50 Resp 20 H 04/27/25 11:50 BP 136/76 04/27/25 11:50 Pulse Ox 94 04/27/25 11:50 O2 Del Method Room Air 04/27/25 11:50 Discharge Plan Discharge Patient Disposition: Home Condition: Stable Prescriptions: New Eliquis 5 mg tablet 5 mg PO BID Qty: 60 0RF Continued metoprolol succinate 50 mg tablet extended release 24 hr 50 mg .ROUTE .take as directed Qty: 135 3RF Rx Instructions: Take 50 mg in the AM and 25 g in the Evening. (DME) cpap supplies See Rx Instructions .Route .MEDSUPPLY Qty: 1 11RF Rx Instructions: respironics comfort gel blue Full face XL nitroglycerin 0.4 mg tablet, sublingual 0.4 mg sublingual Q5M PRN (Reason: chest pain) Qty: 20 2RF Rx Instructions: do not exceed 3 doses per episode meloxicam 15 mg tablet See Rx Instructions .ROUTE .COMPLEX Qty: 30 6RF Dose Instruction: TAKE 1 TABLET BY MOUTH ONCE DAILY. STOP IBUPROFEN WHILE ON MELOXICAM Rx Instructions: TAKE 1 TABLET BY MOUTH ONCE DAILY. 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 Discharge Diet: Cardiac and GI Soft Discharge Activity: Resume usual activity and Cpap/Bipap as instructed Patient Instructions: Apixaban (By mouth) (Eliquis), Opioid Safety, Patient Portal & [place] Instructions Discharge Attestations Time Spent in Discharge Care*: less than 30 min Time Spent in Smoking Cessation: Denies current smoking Quality Metrics Clinical Quality Measures [ No reported AMI, CVA or VTE this stay] Coding Level of Care Code 43987 Diagnoses Atrial fibrillation I48.91 Time Spent (min) 30
[2025-04-27 14:02] VITALS: BP 136/76; PULSE 65; RESP 17; TEMP 37.1; O2SAT 94
== END 2025-04-27 14:03 | disposition home or self-care (01) ==
LOC: ER 07:39 → ER IP 07:48 → CSU 12:42
PROVIDERS: Admitting Provider Student in an Organized Health Care Education/Training Program; Emergency Provider Emergency Medicine; PCP Nurse Practitioner; Visit Provider Internal Medicine
DX: I48.91 Unspecified atrial fibrillation (principal); I10 Essential (primary) hypertension; Z95.5 Presence of coronary angioplasty implant and graft; I25.2 Old myocardial infarction; I25.10 Atherosclerotic heart disease of native coronary artery without angina pectoris; Z86.73 Personal history of transient ischemic attack (TIA), and cerebral infarction without residual deficits; Z82.49 Family history of ischemic heart disease and other diseases of the circulatory system; Z87.891 Personal history of nicotine dependence
CPT/HCPCS: 36415; 71045; 80053; 82274; 83735; 83880; 84443; 84484; 85025; 93005; 93306; 96372; 96374; 96375; 99285; G0378; J0283; J1650; J7030; J9999

== ENCOUNTER 2025-05-04 06:40 | Emergency (ER) | payer MEDICARE, SELFPAY ==
--- NOTE | 2025-05-04 06:47 | XRR_ITS ---
PROCEDURE INFORMATION: Exam: XR Chest Exam date and time: 05/04/2025 6:48 AM Age: 75 years old Clinical indication: Chest pressure; C/O chest pain TECHNIQUE: Imaging protocol: Radiologic exam of the chest. Views: 1 view. COMPARISON: CR (CHEST, ) 04/26/2025 6:07 AM FINDINGS: Lungs: Low lung volumes. Mild left basilar opacities. No consolidation. Pleural spaces: Unremarkable. No pleural effusion. No pneumothorax. Heart/Mediastinum: Unremarkable. No cardiomegaly. Bones/joints: Unremarkable. XR/XR chest 1V portable [id number] IMPRESSION: Left basilar opacities favor atelectasis. Infection considered less likely but not excluded in the correct clinical setting.
[2025-05-04 06:48] VITALS: BP 93/63; PULSE 76; RESP 18; TEMP 36.6; O2SAT 97; BMI 35.7
--- OUTSIDE RECORDS SUMMARY | 2025-05-04 06:48 | XMS_ITS | Encounter Summary ---
Author Organization [facility] Address [address] [place] [address] Care Team Providers Care Inspector Screen Printing Name Role Phone Unavailable Primary Care Provider Unavailabl e Encounter Details Date Type Department Care Team (Late st Contact Info) Description 05/01/2025 External Device Data STL ABSTRACTION Provider, Abstract NO ADDRESS ON FILE Social History Tobacco Use Types Packs/Day Years Used Date Smoking Tobacco: Unknown Feeling Safe Answer Date Recorded Are you [...] on file Sexual Orientation Not on file documented as of this encounter Plan of Treatment Upcoming Encounters Date Type Department Care Team (Late st Contact Info) Description 08/05/2025 3:00 PM 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
--- OUTSIDE RECORDS SUMMARY | 2025-05-04 06:48 | XMS_ITS | Clinical Summary ---
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 Office Visit [facility]enterology- [place] [address] [facility] [address] [place] [id number] Sara Elaine FNP [address] [facility] [address] [place] [phone] Health Maintenance Due Date Last Done Comments DTAP/TDAP/TD VACCINES (1 - Tdap) 1971 FIT-DNA Q 3 years 1997 FIT/FOBT Q 1 year 1997 Flex Sig/CT Colonography Q 5 years 1997 PNEUMOCOCCAL VACCINE 50+ YEA RS (1 of 1 - PCV) 2002 ZOSTER VACCINE (1 of 2) 2002 INFLUENZA VACCINE (#1) 2025 04/25/2023, 2021 COVID-19 Vaccine ( season) 2025 06/18/2021, 10/15/2020, 09/09/2020 RSV VACCINE [...] Gibbs MD - 11/17/2024 10:39 AM CDT [facility] GI Patient Name: Roly Adamson Procedure Date: [...] disruption. There was evidence of a prior wjez-fk-kovo ileo-colonic anastomosis in the proximal transverse colon. [...] with passage of the colonoscope. - Patent wbzi-gf-joxc ileo-colonic anastomosis, characterized by ulceration. - The [...] 10:10:53 AM Scope Out: 10:27:33 AM [address] [place], [place] Alen Gibbs MD GI PROCEDURE ORDERA BLES Final Result from Last 3 Months or Most Recently Relevant to Health Maintenance Insurance MEDICARE HMO RX [facility] Medicare Part D Advance Directives For more information, please contact: [phone] * Full Code (Latest Code Status on File) Date Activated Date Inactivated Comments 11/19/2024 7:40 PM 11/25/2024 7:06 PM * Full Code Date Activated Date Inactivated Comments 11/16/2024 2:16 AM 11/19/2024 7:40 PM
--- OUTSIDE RECORDS SUMMARY | 2025-05-04 06:48 | XMS_ITS | Encounter Summary ---
Author Organization [facility] Address [address] [place] [address] Care Team Providers Care Blade Aligner Name Role Phone Unavailable Primary Care Provider Unavailabl e Encounter Details Date Type Department Care Team (Late st Contact Info) Description 04/30/2025 External Device Data STL ABSTRACTION Provider, [...] st Contact Info) Description 08/05/2025 3:00 PM CUSTOMER ACCOUNT MANAGER Office Visit [facility] [place] [id number] [facility] [address] [place] [address] Sara Elaine FNP [address] [facility] [address] [place] [address] documented as of this encounter Visit Diagnoses Not on filedocumented in this encounter
--- NOTE | 2025-05-04 06:50 | ECG_ITS ---
[employer] Test Date: 2025-05-04 Pat Name: Roly Adamson Department: Room: Gender: Male Customer Support Assistant: : 1950 Requested By: Adán Gomez Order Number: [id number] Julia MD: RODERICK BRADFORD Measurements Intervals [place] Rate: 108 P: 0 MA: 0 QRS: 7 QRSD: 109 T: 13 QT: 340 QTc: 457 Interpretive Statements ATRIAL FIBRILLATION WITH RAPID VENTRICULAR RESPONSE POSSIBLE RIGHT VENTRICULAR CONDUCTION DELAY [RSR (QR) IN V1/V2] ST ELEVATION CONSISTENT WITH INJURY, PERICARDITIS, OR EARLY REPOLARIZATION [ST ELEVATION W/O NORMALLY INFLECTED T-WAVE] Compared to ECG 04/26/2025 12:09:48 No significant changes Electronically Signed On 05-05-2025 22:27:08 CDT by RODERICK BRADFORD [email or web address]
--- NOTE | 2025-05-04 07:03 | ED_ITS ---
HPI - Back Pain/Injury 2 General: Chief Complaint: Back Pain/Injury Stated Complaint: CP going in between neck and shoulders Time Seen by Provider: 05/04/25 06:47 History of Present Illness: 75-year-old male presents emergency room with complaints of chest pain overnight. Patient has a known history of atrial fibrillation. 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 He was walking around began to get chest pain and chest pain lasted all day and through a good portion of last night pretty much resolved now. It is worse when he takes a deep breath. He has been nauseous no vomiting known history of coronary artery disease. He has had stents in the past. Associated symptoms: Deny abdominal pain, chills, dysuria, fever(s) or urinary urgency Related Data Previous Rx's ?Medication ?Instructions ?Recorded cpap supplies #1 ea 11/26/22 nitroglycerin 0.4 mg sublingual 0.4 mg sublingual Q5M PRN chest 06/06/24 tablet pain #20 tabs metoprolol succinate 50 mg 50 mg .Route .take as direc az 11/29/24 tablet,extended release 24 hr #135 tabs meloxicam 15 mg tablet See Rx Instructions .Route 0 12/28/24 .COMPLEX #30 tabs apixaban 5 mg tablet (Eliquis) 5 mg PO BID #60 tabs levofloxacin 750 mg tablet 750 mg PO DAILY 7 days #7 t abs 05/04/25 Allergies Allergy/AdvReac Type Severity Reaction Status Date / Time No Known Allergies Allergy Verified 04/30/25 09:29 Review of Systems 2 Const: Denies: fever(s) or chills Card: Reports: chest pain (Worse with inspiration) Resp: Reports: dyspnea GI: Denies: abdominal pain : Denies: dysuria, urinary frequency or urinary urgency Musc: Denies: neck pain or back pain Skin/Breast: Denies: rash PFSH ED 2 PFSH: Medical History Ulcerative colitis Contact dermatitis Adrenal mass Presence of drug-eluting stent in left circumflex coronary artery stent X2 in 2016, overlapping stent in December 2017. HTN (hypertension) Cardiovascular disease with arteriosclerosis Surgical History History of partial colectomy due to benign mass History of heart artery stent He has two stents and the last one put in was 2017- in [place] History of hemicolectomy Family History Brother Myocardial infarction CAD (coronary artery disease) Mother , AT 81 Cancer LUNG, BREAST Sister Cancer Grandfather Cancer Father , AT AGE 57 Kyphosis deformity of spine Denies family history of Diabetes Clotting disorder Dementia Hyperlipidemia Psychiatric illness Chronic kidney disease (CKD) Suicide Anesthesia complication Bleeding disorder Family history of premature coronary artery disease Lung disease Hypertension Stroke Social History Smoking and tobacco/nicotine status: former use of tobacco/nicotine Quit status (tobacco/nicotine): has quit using Year quit tobacco: 2009 Alcohol intake: current Alcohol intake frequency: few times a week Substance/Drug Use: never Marital status: Current occupational status: employed Current occupation: [employer] Physical Exam 2 Const: COMMON NORMALS: no acute distress GENERAL APPEARANCE: cooperative ORIENTATION/CONSCIOUSNESS: Yes awake, Yes oriented to person, Yes oriented to place and Yes oriented to time HENMT: COMMON NORMALS: normocephalic, atraumatic and hearing grossly normal bilaterally HEAD & SCALP: normocephalic and atraumatic Resp: COMMON NORMALS: normal respiratory effort, No retractions, No use of accessory muscles and clear to auscultation bilaterally AUSCULTATION: clear to auscultation bilaterally Cardio: COMMON NORMALS: regular rate, regular rhythm and No murmurs present (Cardio) RATE: regular rate RHYTHM: regular rhythm GI: COMMON NORMALS: Soft to palpation and No hepatosplenomegaly present A USCULTATION: Yes normoactive bowel sounds PALPATION: Yes Soft to palpation, No Tenderness to palpation present (GI), No Guarding due to palpation present (GI) and Yes No hepatosplenomegaly present Extremity: COMMON NORMALS: normal to inspection, capillary refill normal, no clubbing, cyanosis or edema, no calf tenderness and no pedal edema Neuro: SENSORIUM/ORIENTATION: Yes oriented to person, Yes oriented to place and Yes oriented to time Skin: COMMON NORMALS: no rashes or lesions noted GENERAL SKIN EXAM: no rashes or lesions noted Course 2 Vital Signs: Vital signs: Vital Signs Temperature 97.8 F 05/04/25 06:48 Pulse Rate 77 05/04/25 10:33 Respiratory Rate 14 05/04/25 10:33 Blood Pressure 116/91 05/04/25 10:33 Pulse Oximetry 95 05/04/25 10:33 Oxygen Delivery Me thod Room Air 05/04/25 07:59 MDM - Back Pain/Injury Medical Decision Making Pain worse with inspiration in the right base. Patient has right lower lobe pneumonia on chest x-ray. Troponins negative. Will treat pneumonia and have him follow-up with primary care. No signs of acute coronary syndrome patient is on apixaban unlikely to be pulmonary embolism and his oxygenation is normal. Medical Records I reviewed the patient's medical records. Labs I reviewed the patient's lab results. 05/04/25 07:12 05/04/25 07:12 Radiology Impressions Chest X-Ray 05/04/25 06:47 IMPRESSION: Left basilar opacities favor atelectasis. Infection considered less likely but not excluded in the correct clinical setting. Laboratory Results WBC 14.93 10^3/uL (3.29-11.43) H 05/04/25 07:12 RBC 5.42 10^6/uL (3.85-5.65) 05/04/25 07:12 Hgb 16.00 g/dL (11.27-16.99) 05/04/25 07:12 Hct 48.4 % (37-53) 05/04/25 07:12 MCV 89.3 fl (82-101) 05/04/25 07:12 MCH 29.5 pg (27-33) 05/04/25 07:12 MCHC 33.1 g/dL (30-55) 05/04/25 07:12 RDW 15.8 % (12.1-15.1) H 05/04/25 07:12 Plt Count 349 10^3/cmm (157-399) 05/04/25 07:12 MPV 10.7 fL (7.4-10.4) H 05/04/25 07:12 Neut % (Auto) 69.7 % 05/04/25 07:12 Lymph % (Auto) 11.7 % 05/04/25 07:12 [place] % (Auto) 16.2 % 05/04/25 07:12 Eos % (Auto) 1.0 % 05/04/25 07:12 Baso % (Auto) 0.9 % 05/04/25 07:12 Neut # (Auto) 10.41 10^3/uL (1.8-7.7) H 05/04/25 07:12 Lymph # (Auto) 1.7 10^3/uL (0.8-4.8) 05/04/25 07:12 [place] # (Auto) 2.4 10^3/uL (0.2-0.9) H 05/04/25 07:12 Eos # (Auto) 0.2 10^3/uL (0.0-0.8) 05/04/25 07:12 Baso # (Auto) 0.1 10^3/uL (0.0-0.1) 05/04/25 07:12 Nucleated RBC % (auto) 0 % 05/04/25 07:12 Nucleated RBCs # 0.0 /100WBC 05/04/25 07:12 Sodium 134 mmol/L (136-145) L 05/04/25 07:12 Potassium 4.5 mmol/L (3.5-5.1) 05/04/25 07:12 Chloride 103 mmol/L (98-107) 05/04/25 07:12 Carbon Dioxide 19 mmol/L (22-29) L 05/04/25 07:12 Anion Gap 16.5 (5-19) 05/04/25 07:12 BUN 21 mg/dL (8-23) 05/04/25 07:12 Creatinine 0.7 mg/dL (0.7-1.2) 05/04/25 07:12 GFR Calculation Not Reportable 05/04/25 07:12 Glucose 113 mg/dL (65-115) 05/04/25 07:12 Calculated Osmolality 282 mOsm/kg (285-295) L 05/04/25 07:12 Lactic Acid 1.0 mmol/L (0.5-2.2) 05/04/25 08:46 Calcium 9.5 mg/dL (8.5-10.5) 05/04/25 07:12 Total Bilirubin 1.1 mg/dL (0.15-1.2) 05/04/25 07:12 AST 15 U/L (0-40) 05/04/25 07:12 ALT 22 U/L (0-41) 05/04/25 07:12 Alkaline Phosphatase 52 U/L (40-130) 05/04/25 07:12 Troponin T Baseline 10 ng/L (0-15) 05/04/25 07:12 Troponin T 120 Minute 8.35 ng/L (0-15) 05/04/25 08:46 Delta Troponin T -1.65 ABS# (0-10) L 05/04/25 08:46 Total Protein 6.3 g/dL (6.6-8.7) L 05/04/25 07:12 Albumin 4.1 g/dL (3.5-5.2) 05/04/25 07:12 Globulin 2.2 g/dL (1.3-4.6) 05/04/25 07:12 Influenza A (PCR) Negative (Negative) 05/04/25 09:45 Influenza Type B (PCR) Negative (Negative) 05/04/25 09:45 RSV (PCR) Negative (Negative) 05/04/25 09:45 SARS-CoV-2 (PCR) Negative (Negative) 05/04/25 09:45 All radiology interpretation(s) finalized by discharge EKG Data EKG 1: I personally reviewed and interpreted this EKG as follows: EKG interpretation date: 05/04/25 Prior EKG tracings: available for review Interpretation: EKG 05/04/2025 6:50 AM A-fib rapid ventricular response with a rate of 108 changes of early repull. QTc 403. No acute ST elevation. EKG compared to EKG done 04/26/2025 previous EKG showed atrial fibrillation with a controlled rate. EKG 2: I personally reviewed and interpreted this EKG as follows: Interpretation: EKG 05/04/2025 9 AM atrial fibrillation. There is some ST abnormalities reviewed with Dr. sEpino he does not believe this represents an acute ST elevation [place]. No significant change from previous EKG done earlier same day EKG 3: I personally reviewed and interpreted this EKG as follows: Interpretation: EKG done 05/04/2025 8:44 AM atrial fibrillation rate of [address] changes nonspecific with almost J-point like elevation compared to previous EKGs no significant change. Forwarded to Dr. Espino he does not believe there is an acute STEMI present. Discharge Plan Discharge Patient Disposition: Home Clinical Impression: Pneumonia Condition: Stable Prescriptions: New levofloxacin 750 mg tablet 750 mg PO DAILY 7 Days Qty: 7 0RF No Action metoprolol succinate 50 mg tablet extended release 24 hr 50 mg .ROUTE .take as directed Qty: 135 3RF Rx Instructions: Take 50 mg in the AM and 25 g in the Evening. Eliquis 5 mg tablet 5 mg PO BID Qty: 60 0RF (DME) cpap supplies See Rx Instructions .Route .MEDSUPPLY Qty: 1 11RF Rx Instructions: respironics comfort gel blue Full face XL nitroglycerin 0.4 mg tablet, sublingual 0.4 mg sublingual Q5M PRN (Reason: chest pain) Qty: 20 2RF Rx Instructions: do not exceed 3 doses per episode meloxicam 15 mg tablet See Rx Instructions .ROUTE .COMPLEX Qty: 30 6RF Dose Instruction: TAKE 1 TABLET BY MOUTH ONCE DAILY. STOP IBUPROFEN WHILE ON MELOXICAM Rx Instructions: TAKE 1 TABLET BY MOUTH ONCE DAILY. STOP IBUPROFEN WHILE ON MELOXICAM Discharge Orders: Discharge ED (Routine); Ordered 05/04/25 Ordered By: Adán Johnson Referrals: Johanny Hatch FNP [Primary Care Provider, Nurse Practitioner] Discharge Diet: Usual diet Discharge Activity: Increase activity as tolerated Patient Instructions: Opioid Safety, Pain Management, Patient Portal & [place] Instructions Activity Restrictions/Additional Instructions: Thank you for choosing [facility] for your healthcare needs today. It is very important that you follow up as instructed or that you return to the Emergency Department should you have concerns or if your condition changes or worsens in any way. Emergency department visits are focused on emergent conditions, in some cases you may require further evaluation on an outpatient basis. You were seen in the emergency room with complaints of pain with inhalation. EKG showed atrial fibrillation. Your cardiac enzymes remained normal chest x- ray shows pneumonia we will start you on oral antibiotics 1 pill daily for 7 days return if you have further symptoms or worsening or changes. (Please note that included in your discharge packet is information concerning opioid safety and pain management. This information is given to all patients were discharged from the ER regardless of their discharge diagnosis or the medicines they usually take or are prescribed.) Print Language: Uzbek Coding Level of Care Code ED Director Of Industrial Relations for Guera Fuentes
[2025-05-04 07:22] LABS: Hematocrit 48.4 % (37-53); Hemoglobin 16.00 g/dL (11.27-16.99); Mean Corpuscular HGB Conc 33.1 g/dL (30-55); Mean Corpuscular Hemoglobin 29.5 pg (27-33); Mean Corpuscular Volume 89.3 fl (82-101); Nucleated Red Blood Cells % 0 %; Platelet Count 349 10^3/cmm (157-399); Red Blood Count 5.42 10^6/uL (3.85-5.65); White Blood Count 14.93 10^3/uL (3.29-11.43)
[2025-05-04 07:35] LABS: Troponin(5th) Baseline 10 ng/L (0-15)
[2025-05-04 07:37] LABS: Alanine Aminotransferase 22 U/L (0-41); Albumin Level 4.1 g/dL (3.5-5.2); Alkaline Phosphatase 52 U/L (40-130); Anion Gap 16.5 (5-19); Aspartate Amino Transferase 15 U/L (0-40); Blood Urea Nitrogen 21 mg/dL (8-23); Calcium 9.5 mg/dL (8.5-10.5); Carbon Dioxide 19 mmol/L (22-29); Chloride 103 mmol/L (98-107); Creatinine Clr Calc Pharmacy 97.3333; Globulin 2.2 g/dL (1.3-4.6); Glucose 113 mg/dL (65-115); Osmolality Calculated 282 mOsm/kg (285-295); Potassium 4.5 mmol/L (3.5-5.1); Sodium 134 mmol/L (136-145); Total Protein 6.3 g/dL (6.6-8.7)
[2025-05-04 07:59] VITALS: BP 103/64; PULSE 71; RESP 21; O2SAT 98
[2025-05-04 09:00] VITALS: PULSE 72; RESP 18; O2SAT 96
--- NOTE | 2025-05-04 09:00 | ECG_ITS ---
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: : 1950 Requested By: Adán Gomez Order Number: [id number] Reading MD: RODERICK BRADFORD Measurements Intervals [place] Rate: 82 P: 0 MS: 0 QRS: -2 QRSD: 108 T: 16 QT: 376 QTc: 440 Interpretive Statements ATRIAL FIBRILLATION POSSIBLE RIGHT VENTRICULAR CONDUCTION DELAY [RSR (QR) IN V1/V2] ST ELEVATION, CONSIDER ANTERIOR INJURY [MARKED ST ELEVATION W/O NORMALLY INFLECTED T-WAVE IN V2-V5] ACUTE MS Compared to ECG 05/04/2025 08:44:41 No significant changes Electronically Signed On 05-05-2025 22:29:29 CDT by RODERICK BRADFORD [email or web address]
[2025-05-04 09:11] LABS: Troponin 5 2HR 8.35 ng/L (0-15)
[2025-05-04 09:13] LABS: Troponin 5 2HR Delta -1.65 ABS# (0-10)
[2025-05-04 09:27] VITALS: BP 95/76; PULSE 70; RESP 18; O2SAT 95
[2025-05-04 10:16] LABS: Lactic Sepsis W/Reflex 1.0 mmol/L (0.5-2.2)
[2025-05-04 10:33] VITALS: BP 116/91; PULSE 77; RESP 14; O2SAT 95
[2025-05-04 10:34] LABS: Respiratory Syncytial Virus Ce NEGATIVE (Negative); SARS-CoV-2 PCR NEGATIVE (Negative)
--- NOTE | 2025-05-04 12:47 | ECG_ITS ---
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: : 1950 Requested By: Adán Gomez Order Number: [id number] Julia MD: RODERICK BRADFORD Measurements Intervals [place] Rate: 76 P: 0 NV: 0 QRS: 0 QRSD: 107 T: 15 QT: 370 QTc: 417 Interpretive Statements ATRIAL FIBRILLATION POSSIBLE RIGHT VENTRICULAR CONDUCTION DELAY [RSR (QR) IN V1/V2] ST ELEVATION, CONSIDER ANTERIOR INJURY [MARKED ST ELEVATION W/O NORMALLY INFLECTED T-WAVE IN V2-V5] ACUTE CA Compared to ECG 05/04/2025 06:50:28 Myocardial infarct finding now present Early repolarization no longer present ST (T wave) deviation still present Electronically Signed On 05-05-2025 22:29:31 CDT by RODERICK BRADFORD [email or web address]
== END 2025-05-04 10:41 | disposition home or self-care (01) ==
PROVIDERS: Emergency Provider Family Medicine; PCP Nurse Practitioner
DX: J18.9 Pneumonia, unspecified organism (principal); Z79.01 Long term (current) use of anticoagulants; Z11.52 Encounter for screening for COVID-19; Z87.891 Personal history of nicotine dependence; I25.10 Atherosclerotic heart disease of native coronary artery without angina pectoris; I10 Essential (primary) hypertension
CPT/HCPCS: 36415; 71045; 80053; 83605; 84484; 85025; 87637; 93005; 99285; J9999

== ENCOUNTER → 2025-06-10 13:07 | Outpatient (BNVA) | payer MEDICARE, SELFPAY | PROVIDERS: PCP Nurse Practitioner; Visit Provider Internal Medicine Cardiovascular Disease | DX: Z02.79 Encounter for issue of other medical certificate (principal); I48.91 Unspecified atrial fibrillation; Z79.01 Long term (current) use of anticoagulants | CPT/HCPCS: 99214 ==